=== PATIENT | female | born 1955 | race Caucasian/White ===

== ENCOUNTER 2020-04-30 12:17 | Emergency (ER) | payer OTHER, SELFPAY ==
[2020-04-30 12:50] VITALS: BP 147/79; PULSE 77; RESP 16; TEMP 36.6; O2SAT 96; BMI 40.7
--- NOTE | 2020-04-30 13:41 | US_ITS ---
EXAMINATION: LEFT LOWER EXTREMITY VENOUS DOPPLER ULTRASOUND CLINICAL INFORMATION: Posterior leg pain. Rule out DVT. COMPARISON: Contralateral right lower extremity venous Doppler ultrasound dated 04/17/2017.. TECHNIQUE: Doppler spectral analysis and color flow Doppler imaging was performed of the left lower extremity. Compression and augmentation maneuvers were performed. FINDINGS: The left common femoral vein, greater saphenous vein takeoff, femoral vein, and popliteal vein are normally compressible with normal augmentation responses and phasic changes seen with Doppler imaging. The midcalf peroneal and posterior tibial veins are patent as well. No popliteal cyst is seen. US/US venous duplex LE LT IMPRESSION: No evidence of deep venous thrombosis in the left lower extremity.
--- NOTE | 2020-04-30 13:42 | XR_ITS ---
EXAMINATION: XR KNEE, LEFT CLINICAL INFORMATION: Pain. COMPARISON: None TECHNIQUE: AP, bilateral oblique, and lateral views of the left knee. FINDINGS: Bones and soft tissues are normal. No fracture or joint effusion. Alignment is anatomic. Joint spaces are well maintained. No abnormal soft tissue calcification. XR/XR knee LT 4V IMPRESSION: Normal left knee.
[2020-04-30 15:06] VITALS: BP 110/56; PULSE 67; RESP 16; TEMP 36.5; O2SAT 96
--- NOTE | 2020-04-30 15:17 | ED.EXTPRO ---
HPI - Extremity Problem General Chief complaint: Extremity Injury, Lower Stated complaint: L KNEE PAIN Time Seen by Provider: 04/30/20 13:06 History of Present Illness HPI Narrative: Patient complains of pain in the back of the left leg with no injury, no fever, no shortness of breath The pain is mild and was relieved with Naprosyn and has been going on for 4 days Related Data Allergies Allergy/AdvReac Type Severity Reaction Status Date / Time amoxicillin Allergy Unknown Verified 03/03/20 00:00 No Known Allergies Allergy Unverified 03/17/20 15:02 [No Known Allergies*] Flonase Allergy Unknown Uncoded 03/03/20 00:00 PMFSH Social History Social History Advance Directives: No Advance Directives Information Provided: No Physical Exam Vital Signs: Vital Signs: Vital Signs Temp Pulse Resp BP Pulse Ox 04/30/20 15:06 97.7 F 67 16 110/56 L 96 04/30/20 12:50 97.9 F 77 16 147/79 H 96 Body Mass Index 40.7 Discharge Plan Discharge Clinical Impression: Leg pain, left Patient Disposition: Home, Self-Care Additional Instructions: Your ultrasound did not show any blood clot or cyst so no DVT now If you got increased leg swelling or redness or any worse condition return for re-evaluation You can follow with orthopedist for further evaluation and possible physical therapy if pain continues or primary doctor Return any time any worse condition or any concerns Referrals: Suraj Coates MD [Physician] - 2 days Interventions: ED Discharge Assessment Last Done: 04/30/20 15:23 Discharge Date/Time: 04/30/20 15:24
== END 2020-04-30 15:24 | disposition home or self-care (01) ==
PROVIDERS: Emergency Provider Emergency Medicine; PCP Internal Medicine
DX: M25.562 Pain in left knee (principal)
CPT/HCPCS: 73564; 93971; 99284

== ENCOUNTER 2020-11-08 10:16 | Outpatient (REF) | payer OTHER, SELFPAY ==
[2020-11-08 10:19] LABS: MANUAL DIFF FLAG NO
[2020-11-08 11:03] LABS: Basophils Absolute Auto 0.1 X10*3/uL (0.0-0.2); Basophils Percent Auto 0.6 % (0-2); Eosinophils Absolute Auto 0.3 X10*3/uL (0.0-0.4); Eosinophils Percent Auto 3.1 % (0-4); Hematocrit 52.1 % (37-47); Hemoglobin 16.6 g/dl (12.0-16.0); Imm Gran Abs Auto 0.06 X10*3/uL (0.00-0.03); Imm Gran Pct Auto 0.5 % (0.0-0.4); Lymphocytes Absolute Auto 2.7 X10*3/uL (1.2-4.9); Lymphocytes Percent Auto 24.7 % (20-40); Mean Corpuscular HGB Conc 31.9 g/dl (31.0-35.0); Mean Corpuscular Hemoglobin 28.8 pg (27.0-33.0); Mean Corpuscular Volume 90.5 fL (80-98); Mean Platelet Volume 11.8 fL (9.4-12.3); Monocytes Absolute Auto 0.7 X10*3/uL (0.1-1.2); Neutrophils Absolute Auto 7.2 X10*3/uL (2.0-8.3); Neutrophils Percent Auto 65.1 % (45-73); Platelet Count 277 X10*3/uL (160-400); Red Blood Count 5.76 X10*6/uL (4.20-5.50); White Blood Count 11.1 X10*3/uL (4.8-10.8)
[2020-11-08 11:09] LABS: Glucose Urine UA NEG (NEG); Leukocyte Esterase Urine NEG (NEG); Nitrite Urine NEG (NEG); PH 5.5 (5.0-8.0); Urine Blood TRACE (NEG); Urine Ketones NEG (NEG); Urine Protein NEG (NEG-TRACE)
[2020-11-08 11:12] LABS: Appearance Urine CLEAR; Color Urine YELLOW
[2020-11-08 11:26] LABS: RBC Urine 0-2 /HPF (0); Squamous Epithelial Cell Urine TRACE /LPF; WBC Urine 0-2 /HPF (0-4)
[2020-11-08 12:48] LABS: Alanine Aminotransferase 17 U/L (0-31); Albumin Level 4.2 g/dL (3.5-5.0); Alkaline Phosphatase 75 U/L (39-117); Anion Gap 15 (12-20); Aspartate Amino Transferase 14 U/L (5-31); Bilirubin Total 0.6 mg/dL (0.0-1.0); Blood Urea Nitrogen 13 mg/dL (9-16); Calcium 9.3 mg/dL (8.4-10.2); Carbon Dioxide 27 mmol/L (22-29); Chloride 104 mmol/L (96-108); Cholesterol 161 mg/dL; Estimated Glomerular Filt Rate > 60; Glucose Fasting 91 mg/dL (60-99); HDL Cholesterol 35 mg/dL; LDL Cholesterol Calculated 104 mg/dl; Potassium 4.6 mmol/L (3.3-5.1); Sodium 141 mmol/L (135-145); Total Protein 6.7 g/dL (6.5-8.0); Triglycerides 114 mg/dL
[2020-11-08 13:01] LABS: Reflex LDLD? No
== END 2020-11-08 10:17 | disposition home or self-care (01) ==
LOC: HO.LNP 10:16
PROVIDERS: Visit Provider Internal Medicine
DX: Z00.01 Encounter for general adult medical examination with abnormal findings (principal); E78.00 Pure hypercholesterolemia, unspecified; E55.9 Vitamin D deficiency, unspecified
CPT/HCPCS: 80053; 80061; 81001; 81003; 82306; 85025

== ENCOUNTER 2020-11-23 08:54 | Outpatient (REF) | payer OTHER, SELFPAY ==
--- NOTE | ~2020-11-23 | US_ITS ---
EXAMINATION: US ABDOMEN COMPLETE CLINICAL INFORMATION: Right upper quadrant pain. COMPARISON: CT abdomen and pelvis 10/04/2016. TECHNIQUE: Real-time imaging of the abdominal viscera. FINDINGS: PANCREAS: Normal. ABDOMINAL AORTA: There is evidence of atherosclerotic disease of the distal abdominal aorta. No aneurysm is seen. INFERIOR VENA CAVA: Visualized portions are normal. LIVER: Liver echotexture is increased. The liver is normal in size. The liver contour is normal. No focal hepatic lesion. There is no intrahepatic biliary duct dilatation seen. GALLBLADDER: Normal. The gallbladder is physiologically distended without evidence of stones, sludge, polyps, wall thickening or pericholecystic fluid. COMMON BILE DUCT: Normal in caliber measuring 0.4 cm in diameter. RIGHT KIDNEY: Normal. No hydronephrosis. No renal calculi or focal parenchymal lesions. The kidney measures 12.6 cm in maximum dimension. LEFT KIDNEY: There is a 3.9 x 3.6 x 3.5 cm cyst in the upper pole. There is mild left hydronephrosis. No renal calculi. The kidney measures 12.4 cm in maximum dimension. SPLEEN: Normal. The spleen measures 12.0 cm in maximum dimension. FREE FLUID: None. US/US abdomen complete IMPRESSION: Echogenic liver probably representing fatty infiltration. Left renal cyst. Mild left hydronephrosis. Atherosclerotic disease.
== END 2020-11-23 08:55 | disposition home or self-care (01) ==
LOC: HO.HMGCX 08:54
PROVIDERS: PCP Internal Medicine; Visit Provider Internal Medicine
DX: R10.11 Right upper quadrant pain (principal)
CPT/HCPCS: 76700

== ENCOUNTER 2020-12-05 10:45 | Outpatient (REF) | payer OTHER, SELFPAY ==
[2020-12-05 12:23] LABS: Glucose Urine UA NEG (NEG); Leukocyte Esterase Urine NEG (NEG); Nitrite Urine NEG (NEG); Specific Gravity - Urine <= 1.005 (1.005-1.025); Urine Blood NEG (NEG); Urine Ketones NEG (NEG); Urine Protein NEG (NEG-TRACE)
[2020-12-05 12:25] LABS: Appearance Urine CLEAR; Color Urine YELLOW
== END 2020-12-05 10:46 | disposition home or self-care (01) ==
LOC: HO.LNP 10:45
PROVIDERS: Visit Provider Internal Medicine
DX: N30.00 Acute cystitis without hematuria (principal)
CPT/HCPCS: 81003; 87086

== ENCOUNTER 2021-01-03 17:20 | Outpatient (REF) | payer OTHER, SELFPAY | END 2021-01-03 17:21 | disposition home or self-care (01) | LOC: HO.LNP 17:20 | PROVIDERS: Visit Provider Nurse Practitioner Family | DX: R30.0 Dysuria (principal) | CPT/HCPCS: 87086 ==

== ENCOUNTER 2021-01-05 10:23 | Outpatient (REF) | payer OTHER, SELFPAY ==
--- NOTE | ~2021-01-05 | MM_ITS ---
EXAMINATION: BONE DENSITOMETRY CLINICAL INDICATION: Menopausal. COMPARISON: Previous BD dated 11/18/2018 and baseline BD dated 07/19/2015. TECHNIQUE: Using a [id number] DXA System (software version: 13.1) manufactured by [employer], dual-energy x-ray absorptiometry was performed of the lumbar spine and left hip. The images are of good technical quality. Summary results are attached. FINDINGS: AP SPINE L1-L4: Current: BMD 1.566 g/cm2, Z-score 3.6, T-score 3.2, normal, 0.1% increase from previous, 2.9% increase from baseline (<5% change is not significant). Prior: BMD 1.565 g/cm2. Baseline: BMD 1.522 g/cm2. LEFT FEMUR, NECK: Current: BMD 1.150 g/cm2, Z-score 1.5, T-score 0.8, normal. Prior: BMD 1.185 g/cm2. Baseline: BMD 1.158 g/cm2. LEFT FEMUR, TOTAL: Current: BMD 1.270 g/cm2, Z-score 2.4, T-score 2.1, normal, 3.7% decrease from previous, 2.8% decrease from baseline (<5% change is not significant). Prior: BMD 1.319 g/cm2. Baseline: BMD 1.306 g/cm2. IDENTIFIED RISK FACTORS: Menopause. HISTORY OF FRACTURE: None listed. MEDICATIONS: None listed. MM/XR DEXA axial skeleton IMPRESSION: 1. DIAGNOSIS: Normal bone density based on the lowest T-score value of 0.8 in the femoral neck applying World Health Organization criteria. 2. 10-YEAR FRACTURE RISK PREDICTION, FRAX: Major osteoporotic fracture (clinical spine, forearm, hip or shoulder) 5.1%. Hip fracture 0.1%. 3. Treatment Recommendations: NOF guidelines recommend consideration for treatment in postmenopausal women and men age 50 and older presenting with the following: -A hip or vertebral (clinical or morphometric) fracture. -T-score less than or equal to -2.5 at the femoral neck or spine after appropriate evaluation to exclude secondary causes. -Low bone mass at the hip or spine and a 10-year fracture probability by FRAX of greater than or equal to 3% for hip fracture or greater than or equal to 20% for major osteoporotic fracture based on the [place] adapted WHO algorithm. 4. Other Recommendations: All treatment decisions require clinical judgment and consideration of individual patient factors, including patient preferences, comorbidities, previous drug use, risk factors not captured in the FRAX model (e.g. frailty, falls, vitamin D deficiency, increased bone turnover, interval significant decline in bone density) and possible under or overestimation of fracture risk by FRAX. FUTURE SCAN RECOMMENDATION: People with diagnosed cases of osteoporosis or at high risk for fracture should have regular bone mineral density tests. For patients eligible for Medicare, routine testing is allowed once every 2 years. The testing frequency can be increased to one year for patients who have rapidly progressing disease, those who are receiving or discontinuing medical therapy to restore bone mass, or have additional risk factors.
== END 2021-01-05 10:24 | disposition home or self-care (01) ==
LOC: HO.MAMMO 10:23
PROVIDERS: Visit Provider Internal Medicine
DX: Z13.820 Encounter for screening for osteoporosis (principal); Z78.0 Asymptomatic menopausal state
CPT/HCPCS: 77080

== ENCOUNTER 2021-05-19 10:17 | Outpatient (REF) | payer MEDICARE, SELFPAY ==
[2021-05-19 11:46] LABS: Alanine Aminotransferase 19 U/L (0-31); Alkaline Phosphatase 93 U/L (39-117); Aspartate Amino Transferase 16 U/L (5-31); Bilirubin Direct 0.2 mg/dL (0.0-0.5); Bilirubin Total 0.5 mg/dL (0.0-1.0); Cholesterol 146 mg/dL; HDL Cholesterol 31 mg/dL; LDL Cholesterol Calculated 93 mg/dl; Total Protein 6.6 g/dL (6.5-8.0); Triglycerides 113 mg/dL
[2021-05-19 12:40] LABS: Reflex LDLD? No
== END 2021-05-19 10:18 | disposition home or self-care (01) ==
LOC: HO.LNP 10:17
PROVIDERS: Visit Provider Internal Medicine
DX: E78.00 Pure hypercholesterolemia, unspecified (principal)
CPT/HCPCS: 80061; 80076

== ENCOUNTER 2021-11-09 10:35 | Outpatient (REF) | payer MEDICARE, SELFPAY ==
[2021-11-09 10:39] LABS: MANUAL DIFF FLAG NO
[2021-11-09 10:51] LABS: Basophils Absolute Auto 0.1 X10*3/uL (0.0-0.2); Basophils Percent Auto 0.6 % (0-2); Eosinophils Absolute Auto 0.3 X10*3/uL (0.0-0.4); Eosinophils Percent Auto 2.3 % (0-4); Hematocrit 49.4 % (37.0-47.0); Hemoglobin 15.5 g/dl (12.0-16.0); Imm Gran Abs Auto 0.08 X10*3/uL (0.00-0.03); Imm Gran Pct Auto 0.6 % (0.0-0.4); Lymphocytes Absolute Auto 2.4 X10*3/uL (1.2-4.9); Lymphocytes Percent Auto 18.9 % (20-40); Mean Corpuscular HGB Conc 31.4 g/dl (31.0-35.0); Mean Corpuscular Hemoglobin 28.1 pg (27.0-33.0); Mean Corpuscular Volume 89.7 fL (80.0-98.0); Mean Platelet Volume 11.8 fL (9.4-12.3); Monocytes Absolute Auto 0.8 X10*3/uL (0.1-1.2); Neutrophils Percent Auto 71.6 % (45-73); Platelet Count 288 X10*3/uL (160-400); Red Blood Count 5.51 X10*6/uL (4.20-5.50); Red Cell Distribution Width 14.5 % (11.0-16.0); White Blood Count 12.6 X10*3/uL (4.8-10.8)
[2021-11-09 11:02] LABS: Alanine Aminotransferase 17 U/L (0-31); Alkaline Phosphatase 89 U/L (39-117); Anion Gap 13 (12-20); Aspartate Amino Transferase 15 U/L (5-31); Bilirubin Total 0.5 mg/dL (0.0-1.0); Blood Urea Nitrogen 12 mg/dL (9-16); Carbon Dioxide 23 mmol/L (22-29); Chloride 105 mmol/L (96-108); Cholesterol 151 mg/dL; Estimated Glomerular Filt Rate > 60; Glucose Fasting 103 mg/dL (60-99); HDL Cholesterol 31 mg/dL; LDL Cholesterol Calculated 95 mg/dl; Potassium 4.3 mmol/L (3.3-5.1); Sodium 137 mmol/L (135-145); Total Protein 6.6 g/dL (6.5-8.0); Triglycerides 126 mg/dL
[2021-11-09 11:23] LABS: Vitamin D 25-OH Total 8.8 ng/mL (>30)
[2021-11-09 11:34] LABS: Appearance Urine CLEAR; Color Urine YELLOW; Glucose Urine UA NEG (NEG); Leukocyte Esterase Urine NEG (NEG); Nitrite Urine NEG (NEG); Specific Gravity - Urine <= 1.005 (1.005-1.025); Urine Blood 1+ (NEG); Urine Ketones NEG (NEG); Urine Protein NEG (NEG-TRACE)
[2021-11-09 13:53] LABS: Squamous Epithelial Cell Urine 2+ /LPF
[2021-11-09 13:54] LABS: WBC Urine 0 /HPF (0-4)
== END 2021-11-09 10:36 | disposition home or self-care (01) ==
LOC: HO.LNP 10:35
PROVIDERS: Visit Provider Internal Medicine
DX: I10 Essential (primary) hypertension (principal); E78.5 Hyperlipidemia, unspecified; E78.00 Pure hypercholesterolemia, unspecified; E55.9 Vitamin D deficiency, unspecified; K75.81 Nonalcoholic steatohepatitis (NASH)
CPT/HCPCS: 80053; 80061; 81001; 81003; 82306; 85025

== ENCOUNTER 2021-12-01 16:05 | Outpatient (REF) | payer MEDICARE, SELFPAY | END 2021-12-01 16:06 | disposition home or self-care (01) | LOC: HO.LNP 16:05 | PROVIDERS: Visit Provider Internal Medicine | DX: R30.0 Dysuria (principal) | CPT/HCPCS: 87086 ==

== ENCOUNTER 2022-05-10 15:51 | Outpatient (REF) | payer MEDICARE, SELFPAY ==
[2022-05-10 16:06] LABS: Appearance Urine Clear; Color Urine Yellow; Glucose Urine UA Negative (Negative); Leukocyte Esterase Urine Trace (Negative); Nitrite Urine Negative (Negative); UMIC TRIGGER UA YES; Urine Blood Negative (Negative); Urine Ketones Negative (Negative); Urine Protein Negative (Neg-Trace)
[2022-05-10 16:08] LABS: Bacteria Urine None Seen (None Seen); Hyaline Casts Urine 0-2 /LPF (0-2); RBC Urine 0-2 /HPF (0-2); Squamous Epithelial Cell Urine 0-2 /HPF (0-2); WBC Urine 0-5 /HPF (0-5)
== END 2022-05-10 15:52 | disposition home or self-care (01) ==
LOC: HO.LNP 15:51
PROVIDERS: Visit Provider Internal Medicine
DX: N39.0 Urinary tract infection, site not specified (principal)
CPT/HCPCS: 81001; 87086

== ENCOUNTER 2022-05-30 08:46 | Outpatient (REF) | payer MEDICARE, SELFPAY ==
--- NOTE | ~2022-05-30 | CT_ITS ---
EXAMINATION: CT ABDOMEN AND PELVIS WITHOUT CONTRAST CLINICAL INFORMATION: Kidney stones. COMPARISON: None TECHNIQUE: Multidetector volumetric imaging was performed from the superior aspect of the liver through the pubic symphysis. Sagittal and coronal reformatted images were obtained on the technologist's workstation. This CT examination was performed using dose optimization techniques as appropriate, variously including the following: *Automated exposure control *Adjustment of mA and/or kV according to patient size (this includes techniques or standardized protocols for targeted exams where dose is matched to indication/reason for exam; i.e. extremities or head) *Use of iterative reconstruction technique DLP: 1032 mGy-cm FINDINGS: LUNG BASES: The visualized lung bases are unremarkable. LIVER, GALLBLADDER, AND BILIARY TREE: The liver is normal in size, shape, and attenuation. No focal hepatic lesion or biliary ductal dilatation is present. The gallbladder is unremarkable with no evidence of radiopaque gallstones, gallbladder wall thickening, or obvious pericholecystic inflammatory changes. PANCREAS: Unremarkable. SPLEEN: Unremarkable. ADRENAL GLANDS: Unremarkable. KIDNEYS AND URETERS: The kidneys are normal in size, shape, and attenuation. No hydronephrosis, hydroureter, or calculi seen. There are vascular calcifications in the renal hilum bilaterally. No perinephric stranding. There is a 3.8 x 3.9 x 4.4 cm partially exophytic cyst upper pole left kidney. BLADDER: The bladder is empty without bladder wall thickening. GASTROINTESTINAL TRACT: There is diffuse scattered colonic diverticulosis without diverticulitis. There is scattered stool without distention. No mural thickening or pericolic fat stranding. Visualized appendix and the small-bowel loops are normal caliber. The stomach is nondistended. No inflammatory process seen in the abdomen. ABDOMINAL WALL: No significant hernia is appreciated. LYMPH NODES: Normal. VASCULAR: There is atherosclerotic calcification of abdominal aorta without aneurysmal dilatation. PELVIC VISCERA: There is a calcification along the posterior upper uterus likely fibroid. The uterus is anteverted. No adnexal mass or free fluid seen. There are no abnormal pelvic lymph nodes. OSSEOUS STRUCTURES: No aggressive lytic or sclerotic process seen. CT/CT abdomen pelvis wo IV con IMPRESSION: 1. No radiopaque urolith or hydroureteronephrosis. There are vascular calcifications in the renal hilum bilaterally. There is a partially exophytic cyst upper pole left kidney. 2. Diffuse colonic diverticulosis without diverticulitis. Mild constipation. Fleischner guidelines were followed.
== END 2022-05-30 08:47 | disposition home or self-care (01) ==
LOC: HO.CT 08:46
PROVIDERS: Visit Provider Internal Medicine
DX: N20.0 Calculus of kidney (principal)
CPT/HCPCS: 74176

== ENCOUNTER 2022-06-01 10:34 | Outpatient (REF) | payer MEDICARE, SELFPAY ==
[2022-06-01 14:01] LABS: Alanine Aminotransferase 19 U/L (0-31); Albumin Level 4.1 g/dL (3.5-5.0); Alkaline Phosphatase 87 U/L (39-117); Aspartate Amino Transferase 15 U/L (5-31); Bilirubin Direct 0.2 mg/dL (0.0-0.5); Bilirubin Total 0.5 mg/dL (0.0-1.0); Cholesterol 150 mg/dL; HDL Cholesterol 33 mg/dL; LDL Cholesterol Calculated 93 mg/dl; Total Protein 6.7 g/dL (6.5-8.0); Triglycerides 121 mg/dL
[2022-06-01 15:53] LABS: Reflex LDLD? No
== END 2022-06-01 10:35 | disposition home or self-care (01) ==
LOC: HO.LNP 10:34
PROVIDERS: Visit Provider Internal Medicine
DX: E78.00 Pure hypercholesterolemia, unspecified (principal)
CPT/HCPCS: 80061; 80076

== ENCOUNTER 2022-12-06 11:05 | Outpatient (REF) | payer MEDICARE, SELFPAY ==
[2022-12-06 11:10] LABS: MANUAL DIFF FLAG NO
[2022-12-06 11:30] LABS: Basophils Absolute Auto 0.1 X10*3/uL (0.0-0.2); Basophils Percent Auto 0.6 % (0-2); Eosinophils Absolute Auto 0.3 X10*3/uL (0.0-0.4); Eosinophils Percent Auto 2.2 % (0-4); Hematocrit 50.9 % (37.0-47.0); Hemoglobin 16.3 g/dl (12.0-16.0); Imm Gran Abs Auto 0.09 X10*3/uL (0.00-0.03); Imm Gran Pct Auto 0.8 % (0.0-0.4); Lymphocytes Absolute Auto 2.4 X10*3/uL (1.2-4.9); Lymphocytes Percent Auto 20.6 % (20-40); Mean Corpuscular Hemoglobin 29.1 pg (27.0-33.0); Mean Corpuscular Volume 90.7 fL (80.0-98.0); Mean Platelet Volume 11.8 fL (9.4-12.3); Monocytes Absolute Auto 0.8 X10*3/uL (0.1-1.2); Monocytes Percent Auto 6.4 % (2-11); Neutrophils Absolute Auto 8.1 x10*3/uL (2.0-8.3); Neutrophils Percent Auto 69.4 % (45-73); Platelet Count 281 X10*3/uL (160-400); Red Blood Count 5.61 X10*6/uL (4.20-5.50); Red Cell Distribution Width 14.6 % (11.0-16.0); White Blood Count 11.7 X10*3/uL (4.8-10.8)
[2022-12-06 11:38] LABS: Appearance Urine Clear; Color Urine Yellow; Glucose Urine UA Negative (Negative); Leukocyte Esterase Urine Trace (Negative); Nitrite Urine Negative (Negative); UMIC TRIGGER UACC YES; Urine Blood Negative (Negative); Urine Ketones Negative (Negative); Urine Protein Negative (Neg-Trace)
[2022-12-06 11:45] LABS: Bacteria Urine None Seen (None Seen); Hyaline Casts Urine 0-2 /LPF (0-2); RBC Urine 0-2 /HPF (0-2); Squamous Epithelial Cell Urine 0-2 /HPF (0-2); WBC Urine 0-5 /HPF (0-5)
[2022-12-06 11:52] LABS: Alanine Aminotransferase 22 U/L (0-31); Alkaline Phosphatase 90 U/L (39-117); Anion Gap 12 (12-20); Aspartate Amino Transferase 16 U/L (5-31); Bilirubin Total 0.6 mg/dL (0.0-1.0); Blood Urea Nitrogen 14 mg/dL (9-16); Calcium 9.3 mg/dL (8.4-10.2); Carbon Dioxide 27 mmol/L (22-29); Chloride 106 mmol/L (96-108); Cholesterol 154 mg/dL; Estimated Glomerular Filt Rate > 60; Glucose Fasting 94 mg/dL (60-99); HDL Cholesterol 30 mg/dL; LDL Cholesterol Calculated 99 mg/dl; Potassium 4.5 mmol/L (3.3-5.1); Sodium 140 mmol/L (135-145); Total Protein 6.6 g/dL (6.5-8.0); Triglycerides 125 mg/dL
== END 2022-12-06 11:06 | disposition home or self-care (01) ==
LOC: HO.LNP 11:05
PROVIDERS: Visit Provider Internal Medicine
DX: E78.00 Pure hypercholesterolemia, unspecified (principal); I10 Essential (primary) hypertension; E78.6 Lipoprotein deficiency; E55.9 Vitamin D deficiency, unspecified
CPT/HCPCS: 80053; 80061; 81001; 82306; 85025

== ENCOUNTER 2023-04-22 11:22 | Outpatient (AMB) | payer MEDICARE, SELFPAY ==
--- NOTE | 2023-04-22 11:28 | A.OFFVIS_ITS ---
Intake Vital Signs 04/22/23 11:35 Height 5 ft 3 in Weight 256 lb BMI 45.3 BP 126/58 L Blood Pressure Location Lt brachial Position Sitting Pulse 81 Intake Visit Reasons: lipoma of the neck Intake Note: This patient presents for an assessment for lipoma of the neck. Patient c/o; reports has minimized. Crystal Report Developer Required: No Accompanied by: Self / Same As Patient Allergies amoxicillin Allergy (Unknown, Verified 04/22/23 11:28) Rash sulfamethoxazole [From Bactrim] Allergy (Verified 04/22/23 11:28) Rash trimethoprim [From Bactrim] Allergy (Verified 04/22/23 11:28) Rash Medication List - Last Reconciled 04/22/23 by Ashish Loyola MD atenolol 50 mg PO DAILY atorvastatin 40 mg PO DAILY cholecalciferol (vitamin D3) 25 mcg PO DAILY ciprofloxacin HCl 250 mg PO BID 5 days HPI lipoma of the neck HPI Details 68-year-old female referred for a lump o n the neck. She says she noticed this a few weeks ago. He seems to be more swollen but 1 day, she says that this drained completely. She denies any problems since that time. She says that this does not bother her at all. She denies any persistent drainage. She denies any redness. [facility] Medical History Epidermal cyst of neck Surgical History History of mastectomy History of lumpectomy Family History Paternal Grandfather Cancer Social History Alcohol intake: never Patient Tobacco Use Status: Never used Tobacco Review of Systems Const Denies chills and Denies fever(s) Card Denies chest pain, Denies dyspnea and Denies dyspnea on exertion Resp Denies cough, Denies dyspnea and Denies dyspnea on exertion GI Denies hematochezia and Denies change in bowel habits Denies hematuria Musc Denies back pain and Denies limited range of motion Neuro Denies focal weakness and Denies convulsions Psych Denies depression and Denies mood swings Physical Exam Vital Signs: Last Vital Signs Pulse 81 04/22/23 11:35 BP 126/58 L 04/22/23 11:35 BMI result Body Mass Index 45.3 Const General: comfortable and no acute distress Orientation/consciousness: patient oriented x3 Neck Other: Anterior neck with note of a small induration probably about 5 mm in size, not swollen, no discharge, no redness Neck: Yes no lymphadenopathy Resp Auscultation: clear to auscultation bilaterally Cardio Rhythm: regular rhythm GI Palpation (GI): Soft to palpation, nontender and no guarding Neuro General: patient oriented x3 Assessment & Plan Assessment & Plan (1) Epidermal cyst of neck: Code(s): L72.0 - Epidermal cyst Plan: She has what appears to be an epidermal cyst that had ruptured. I explained to her the technique of excision. I reviewed with her the risks including but not limited to bleeding, infections, poor healing, as well as the benefits and alternatives. She says that this has not bothered her she wants to hold off on excision. She says the swelling has resolved. Coding Level of Care Code New Pt Level 3 (04980) Diagnoses Epidermal cyst of neck L72.0
[2023-04-22 11:35] VITALS: BP 126/58; PULSE 81; BMI 45.3
== END 2023-04-22 11:48 | disposition home or self-care (01) ==
PROVIDERS: PCP Internal Medicine; Visit Provider Surgery
DX: L72.0 Epidermal cyst (principal)
CPT/HCPCS: 99203

== ENCOUNTER → 2023-04-22 11:22 | Outpatient (BNVA) | payer MEDICARE, SELFPAY | PROVIDERS: PCP Internal Medicine; Visit Provider Surgery ==

== ENCOUNTER 2023-06-07 10:40 | Outpatient (REF) | payer MEDICARE, SELFPAY ==
[2023-06-07 11:12] LABS: Cholesterol 149 mg/dL (<200); HDL Cholesterol 32 mg/dL (>40); LDL Cholesterol Calculated 95 mg/dL (<100); Triglycerides 114 mg/dL (<150)
[2023-06-07 11:14] LABS: Alanine Aminotransferase 19 U/L (0-31); Alkaline Phosphatase 86 U/L (39-117); Aspartate Amino Transferase 16 U/L (5-31); Bilirubin Direct 0.2 mg/dL (0.0-0.5); Bilirubin Total 0.4 mg/dL (0.0-1.0); Total Protein 7.2 g/dL (6.5-8.0)
[2023-06-07 14:48] LABS: Reflex LDLD? No
== END 2023-06-07 10:41 | disposition home or self-care (01) ==
LOC: HO.LNP 10:40
PROVIDERS: Visit Provider Internal Medicine
DX: E78.00 Pure hypercholesterolemia, unspecified (principal)
CPT/HCPCS: 80061; 80076

== ENCOUNTER 2023-11-18 09:50 | Outpatient (REF) | payer MEDICARE, SELFPAY ==
--- NOTE | ~2023-11-18 | US_ITS ---
EXAMINATION: US ABDOMEN COMPLETE CLINICAL INFORMATION: Nonalcoholic steatohepatitis (FRASER). COMPARISON: CT abdomen and pelvis without contrast 05/30/2022. Ultrasound abdomen complete 11/23/2020. TECHNIQUE: Real-time imaging of the abdominal viscera. Limited visualization due to bowel gas. FINDINGS: PANCREAS: Limited visualization of pancreatic tail and head. Imaged portion of pancreatic body is unremarkable. ABDOMINAL AORTA: Limited visualization of the [id number] abdominal aorta. Imaged portions of [id number] abdominal aorta are unremarkable. INFERIOR VENA CAVA: Visualized portions are normal. LIVER: Increased hepatic parenchymal heterogeneity and echogenicity could be associated with hepatocellular disease/hepatic steatosis and substantially limits visualization. Correlation with liver function tests and clinical exam recommended to determine further management. The liver contour is normal. GALLBLADDER: No gallstones or gallbladder wall thickening. COMMON BILE DUCT: Normal in caliber measuring 0.5 cm in diameter. RIGHT KIDNEY: Mild fullness of the right renal pelvis. A 1.7 cm right lower pole cyst with benign features. There is no indication for follow-up imaging. No renal calculi. Limited visualization. The kidney measures 12.0 cm in maximum dimension. LEFT KIDNEY: No hydronephrosis. No renal calculi. 4.8 cm upper and 1.2 cm lower pole cysts with benign features. There is no indication for follow-up imaging. The kidney measures 11.0 cm in maximum dimension. SPLEEN: Borderline splenomegaly. The spleen measures 12.5 cm in maximum dimension. FREE FLUID: None. US/US abdomen complete IMPRESSION: 1. Increased hepatic parenchymal heterogeneity and echogenicity could be associated with hepatocellular disease/hepatic steatosis and substantially limits visualization. Correlation with liver function tests and clinical exam recommended to determine further management. The liver contour is normal. 2. Mild fullness of the right renal pelvis. 3. Borderline splenomegaly
== END 2023-11-18 09:51 | disposition home or self-care (01) ==
LOC: HO.US 09:50
PROVIDERS: PCP Internal Medicine; Visit Provider Internal Medicine
DX: K75.81 Nonalcoholic steatohepatitis (NASH) (principal)
CPT/HCPCS: 76700

== ENCOUNTER 2023-12-09 11:05 | Outpatient (REF) | payer MEDICARE, SELFPAY ==
[2023-12-09 11:08] LABS: MANUAL DIFF FLAG NO
[2023-12-09 12:15] LABS: Basophils Absolute Auto 0.1 X10*3/uL (0.0-0.2); Basophils Percent Auto 0.6 % (0-2); Eosinophils Absolute Auto 0.3 X10*3/uL (0.0-0.4); Eosinophils Percent Auto 2.1 % (0-4); Hematocrit 52.6 % (37.0-47.0); Hemoglobin 16.6 g/dl (12.0-16.0); Imm Gran Abs Auto 0.07 X10*3/uL (0.00-0.03); Imm Gran Pct Auto 0.6 % (0.0-0.4); Lymphocytes Absolute Auto 2.4 X10*3/uL (1.2-4.9); Lymphocytes Percent Auto 19.6 % (20-40); Mean Corpuscular HGB Conc 31.6 g/dl (31.0-35.0); Mean Corpuscular Hemoglobin 28.4 pg (27.0-33.0); Mean Corpuscular Volume 89.9 fL (80.0-98.0); Mean Platelet Volume 11.4 fL (9.4-12.3); Monocytes Absolute Auto 0.8 X10*3/uL (0.1-1.2); Monocytes Percent Auto 6.7 % (2-11); Neutrophils Absolute Auto 8.7 x10*3/uL (2.0-8.3); Neutrophils Percent Auto 70.4 % (45-73); Platelet Count 301 X10*3/uL (160-400); Red Blood Count 5.85 X10*6/uL (4.20-5.50); Red Cell Distribution Width 14.6 % (11.0-16.0); White Blood Count 12.3 X10*3/uL (4.8-10.8)
[2023-12-09 12:18] LABS: Appearance Urine Clear; Color Urine Yellow; Glucose Urine UA Negative (Negative); Leukocyte Esterase Urine Negative (Negative); Nitrite Urine Negative (Negative); Urine Blood Negative (Negative); Urine Ketones Negative (Negative); Urine Protein Negative (Neg-Trace)
[2023-12-09 12:23] LABS: Bacteria Urine None Seen (None Seen); Hyaline Casts Urine 0-2 /LPF (0-2); RBC Urine 0-2 /HPF (0-2); Squamous Epithelial Cell Urine 0-2 /HPF (0-2); WBC Urine 0-5 /HPF (0-5)
[2023-12-09 12:33] LABS: Alanine Aminotransferase 21 U/L (0-31); Alkaline Phosphatase 89 U/L (39-117); Anion Gap 10 (12-20); Aspartate Amino Transferase 18 U/L (5-31); Bilirubin Total 0.5 mg/dL (0.0-1.0); Blood Urea Nitrogen 11 mg/dL (9-16); Calcium 9.5 mg/dL (8.4-10.2); Carbon Dioxide 28 mmol/L (22-29); Chloride 105 mmol/L (96-108); Cholesterol 152 mg/dL (<200); Estimated Glomerular Filt Rate > 60; Glucose Fasting 100 mg/dL (60-99); HDL Cholesterol 32 mg/dL (>40); LDL Cholesterol Calculated 92 mg/dL (<100); Potassium 4.3 mmol/L (3.3-5.1); Sodium 139 mmol/L (135-145); Total Protein 7.2 g/dL (6.5-8.0); Triglycerides 144 mg/dL (<150)
[2023-12-09 12:47] LABS: Vitamin D 25-OH Total 42.3 ng/mL (>30)
== END 2023-12-09 11:06 | disposition home or self-care (01) ==
LOC: HO.LNP 11:05
PROVIDERS: Visit Provider Internal Medicine
DX: I10 Essential (primary) hypertension (principal); E78.00 Pure hypercholesterolemia, unspecified; E55.9 Vitamin D deficiency, unspecified
CPT/HCPCS: 80053; 80061; 81001; 82306; 85025

== ENCOUNTER 2024-01-24 09:51 | Outpatient (REF) | payer MEDICARE, SELFPAY ==
--- NOTE | ~2024-01-24 | US_ITS ---
EXAMINATION: US ABDOMEN LIMITED WITH LIVER ELASTOGRAPHY CLINICAL INFORMATION: Nonalcoholic steatohepatitis. COMPARISON: Abdominal ultrasound dated 11/18/2023; CT abdomen and pelvis dated 05/30/2022. TECHNIQUE: Real-time imaging of the abdominal viscera. Noninvasive ultrasound liver fibrosis assessment is performed using Jean [employer] point quantification shear wave elastography (pSWE) with a 5 MHz transducer. Multiple elastography samples are obtained. FINDINGS: PANCREAS: There is increased echotexture, consistent with fatty infiltration. No pancreatic mass or ductal dilatation is seen. There is no peripancreatic acute fluid collection. LIVER: The liver demonstrates normal size, contour and increased echogenicity, with pericholecystic sparing. No focal lesion or intrahepatic biliary duct dilatation. The right lobe measures 15.8 cm in length. The left lobe measures 11.7 cm in length. There is hepatopedal portal venous flow. Shear wave elastography provides a median stiffness of 1.67 m/s (reference: normal median stiffness is 0.81 - 1.22 m/s). The IQR/median stiffness to assess sampling precision is 0.13 (reference: optimal IQR/median stiffness is under 0.3). GALLBLADDER: Normal. The gallbladder is physiologically distended without evidence of stones, sludge, polyps, wall thickening or pericholecystic fluid. COMMON BILE DUCT: Normal in caliber measuring 0.3 cm in diameter. RIGHT KIDNEY: Normal. No hydronephrosis. No renal calculi or focal parenchymal lesions. The kidney measures 12.5 cm in maximum dimension. FREE FLUID: None. US/US abdomen olvera w elastography IMPRESSION: 1. There is generalized increase in hepatic echotexture, consistent with fatty infiltration or hepatocellular disease. Please correlate clinically. Characteristic pericholecystic sparing favors the provided diagnosis of nonalcoholic steatohepatitis. No focal hepatic mass or intrahepatic biliary dilatation is seen. 2. Elastography: Liver elastography measurements are consistent with a minimal risk for clinically significant liver fibrosis (METAVIR Stage F0-F1). Electronically signed by: Dickson Chauhan MD 02/23/2024 04:09 PM EDT
== END 2024-01-24 09:52 | disposition home or self-care (01) ==
LOC: HO.US 09:51
PROVIDERS: Visit Provider Internal Medicine
DX: K75.81 Nonalcoholic steatohepatitis (NASH) (principal)
CPT/HCPCS: 76705; 76981

== ENCOUNTER 2024-02-06 10:58 | Outpatient (REF) | payer MEDICARE, SELFPAY ==
[2024-02-06 11:31] LABS: Blood Urea Nitrogen 14 mg/dL (9-16); Estimated Glomerular Filt Rate > 60
== END 2024-02-06 10:59 | disposition home or self-care (01) ==
LOC: HO.LNP 10:58
PROVIDERS: Visit Provider Internal Medicine
DX: I10 Essential (primary) hypertension (principal)
CPT/HCPCS: 82565; 84520

== ENCOUNTER 2024-02-18 09:19 | Outpatient (REF) | payer MEDICARE, SELFPAY ==
--- NOTE | ~2024-02-18 | CT_ITS ---
EXAMINATION: CT LUMBAR SPINE WITHOUT CONTRAST CLINICAL INFORMATION: Spinal stenosis COMPARISON: None TECHNIQUE: A multidetector CT acquisition of the lumbar spine is obtained without contrast. This CT examination was performed using dose optimization techniques as appropriate, variously including the following: *Automated exposure control *Adjustment of mA and/or kV according to patient size (this includes techniques or standardized protocols for targeted exams where dose is matched to indication/reason for exam; i.e. extremities or head) *Use of iterative reconstruction technique DLP: 1284 mGycm FINDINGS: Mild lumbar levocurvature. Normal lumbar lordosis is preserved. Trace anterolisthesis at L2-L3. Vertebral body heights are maintained. There is no suspicious osseous lesion. Mild disc height loss at L2-L3. Please note canal patency is not well assessed on this examination due to inherent limitations of CT without intrathecal contrast. Within these limitations, multilevel degenerative changes with level by level detail are as follows: L1-L2: No spinal canal or neural foraminal stenosis. L2-L3: Annular disc bulge and moderate bilateral facet arthrosis with partially calcified ligamentum flavum thickening. Apparent mild spinal canal and mild bilateral neural foraminal stenosis. L3-L4: Annular disc bulge with mild bilateral facet arthrosis and ligamentum flavum thickening. No significant spinal canal stenosis. Mild bilateral neural foraminal stenosis. L4-L5: Annular disc bulge/disc osteophyte complex with superiorly migrated left subarticular/foraminal disc extrusion and moderate bilateral facet arthrosis with ligamentum flavum thickening. Apparent moderate spinal canal and subarticular zone narrowing with possible mass effect on the traversing L5 nerve roots. Severe left neural foraminal stenosis with mass effect along the exiting left L4 nerve root. Mild to moderate right neural foraminal stenosis. L5-S1: Annular disc bulge and moderate facet arthrosis. No spinal canal stenosis. Mild neural foraminal narrowing. No significant abnormalities of the paraspinal musculature. The abdominal aorta is of normal contour and caliber. Degenerative changes of the bilateral sacroiliac joints with osseous spurring, more pronounced on the right, subchondral sclerosis, and vacuum phenomenon. Mild patchy calcific atherosclerosis. Bilateral renal cysts not requiring further imaging follow-up. CT/CT lumbar spine wo IV con IMPRESSION: At L4-L5, there is apparent moderate spinal canal and subarticular zone narrowing with possible mass effect on the traversing L5 nerve roots. a superiorly migrated left subarticular/foraminal disc extrusion contributes to severe left neural foraminal stenosis with mass effect along the exiting left L4 nerve root. Electronically signed by: Gabbi Cole MD 03/11/2024 11:29 AM EDT
== END 2024-02-18 09:20 | disposition home or self-care (01) ==
LOC: HO.CT 09:19
PROVIDERS: PCP Internal Medicine; Visit Provider Internal Medicine
DX: M48.07 Spinal stenosis, lumbosacral region (principal)
CPT/HCPCS: 72131

== ENCOUNTER 2024-06-12 11:03 | Outpatient (REF) | payer MEDICARE, SELFPAY ==
--- OUTSIDE RECORDS SUMMARY | 2024-06-12 11:05 | XMS_ITS ---
Author Organization Otoniel Lopez MD Address [address] [place] [phone] Care Team Providers Care Straight Pin Making Machine Operator Name Role Phone Otoniel Lopez Primary Care Provider REASON FOR VISIT RF MEDICATIONS Medication SIG (Take, Route, Frequency, Duration) Notes Start Date End Date Status Atenolol 50 MG TAKE 1 TABLET ONCE D AILY Orally Once a day for 90 days Active Atorvastatin Calcium 40 MG TAKE 1 TABLET ONCE DAILY Orally Once a day for 90 days Active Encounters Encounter Location Date Provider Diagnosis Otoniel Lopez MD [address] [place] [phone] 03/03/2024 Otoniel Lopez Essential hypertensi on I10 and Pure hypercholesterolemia E78.00 ASSESSMENTS Encounter Date Diagnosis Assessment Notes Treatment Notes Treatment Clinical Notes 03/03/2024 Essential hypertensi on (ICD-10 - I10) 03/03/2024 Pure hypercholestero lemia (ICD-10 - E78.00) PLAN OF TREATMENT Medication Medication Name Sig Start Date Stop Date Notes Atenolol 50 MG TAKE 1 TABLET ONCE D AILY Orally Once a day for 90 days Atorvastatin Calcium 40 MG TAKE 1 TABLET ONCE DAILY Orally Once a day for 90 days Next Appt Details Provider Name:Otoniel villalobos, 06/15/2024 09:00:00 AM, [address] [place] [address], [place] [address], [place], [phone], Provider Name:Otoniel villalobos, 12/08/2024 08:00:00 AM, [address] [place] [address], [address], [place], [phone], Provider Name:Otoniel villalobos, 12/15/2024 02:30:00 PM, [address] [place] [address], [address], [place], [phone],
--- OUTSIDE RECORDS SUMMARY | 2024-06-12 11:05 | XMS_ITS | Patient Health Record ---
Author Organization Otoniel Lopez MD Address [address] [place], [place] [id number] Care Team Providers Care Technical Specialist [employer]ogen[employer] Name Role Phone Otoniel Lopez Primary Care Provider ALLERGIES Allergen (clinical drug ingredient) Drug/Non Drug Allergy documented on EMR Reaction Allergy Type Onset Date Status sulfamethoxazole / trimethoprim Bactrim DS rash Drug Allergy Active amoxicillin Amoxicillin rash Drug Allergy Act mart RESULTS Component Value Reference Range Notes US abdomen complete Reviewed date:12/05/2023 12:50:14 PM Interpretation: Performing Lab: Notes/Report: [address] [address] Ultrasound Report Signed Patient: Gaby Villalobos MR#: [id number] : 1955 Acct:[id number] Age/Sex: 68 / F ADM Date: 11/18/23 Loc: HO.US Attending Dr: Otoniel Lopez MD Ordering Physician: Otoniel Lopez MD Date of Service: 11/18/23 Procedure(s): US abdomen complete Accession Number(s): [id number] cc: Otoniel Lopez MD EXAMINATION: US ABDOMEN COMPLETE CLINICAL INFORMATION: Nonalcoholic steatohepatitis (FRASER). COMPARISON: CT abdomen and pelvis without contrast 05/30/2022. Ultrasound abdomen complete 11/23/2020. TECHNIQUE: Real-time imaging of the abdominal viscera. Limited visualization due to bowel gas. FINDINGS: PANCREAS: Limited visualization of pancreatic tail and head. Imaged portion of pancreatic body is unremarkable. ABDOMINAL AORTA: Limited visualization of the fng-re-grvqtt abdominal aorta. Imaged portions of khiayneo-ra-uxt abdominal aorta are unremarkable. INFERIOR VENA CAVA: Visualized portions are normal. LIVER: Increased hepatic parenchymal heterogeneity and echogenicity could be associated with hepatocellular disease/hepatic steatosis and substantially limits visualization. Correlation with liver function tests and clinical exam recommended to determine further management. The liver contour is normal. GALLBLADDER: No gallstones or gallbladder wall thickening. COMMON BILE DUCT: Normal in caliber measuring 0.5 cm in diameter. RIGHT KIDNEY: Mild fullness of the right renal pelvis. A 1.7 cm right lower pole cyst with benign features. There is no indication for follow-up imaging. No renal calculi. Limited visualization. The kidney measures 12.0 cm in maximum dimension. LEFT KIDNEY: No hydronephrosis. No renal calculi. 4.8 cm upper and 1.2 cm lower pole cysts with benign features. There is no indication for follow-up imaging. The kidney measures 11.0 cm in maximum dimension. SPLEEN: Borderline splenomegaly. The spleen measures 12.5 cm in maximum dimension. FREE FLUID: None. US/US abdomen complete IMPRESSION: 1. Increased hepatic parenchymal heterogeneity and echogenicity could be associated with hepatocellular disease/hepatic steatosis and substantially limits visualization. Correlation with liver function tests and clinical exam recommended to determine further management. The liver contour is normal. 2. Mild fullness of the right renal pelvis. 3. Borderline splenomegaly Dictated By: Nadira Uribe MD Signed By: <Electronically signed by Nadira Uribe MD in OV> 12/04/23 0510 DD/ 1011 TD/TT: Flight Engineer Manager: Complete Blood Count Auto Di ff Reviewed date:12/09/2023 12:42:58 PM Interpretation: Performing Lab:[facility], [address] [place] [phone] Notes/Report: White Blood Count 12.3 4.8-10.8 X10*3/uL Red Blood Count 5.85 4.20-5.50 X10*6/uL Hemoglobin 16.6 12.0-16.0 g/dl Hematocrit 52.6 37.0-47.0 % Mean Corpuscular Volume 89.9 80.0-98.0 fL Mean Corpuscular Hemoglobin 28.4 27.0-33.0 pg Mean Corpuscular HGB Conc 31.6 31.0-35.0 g/dl Red Cell Distribution Width 14.6 11.0-16.0 % Platelet Count 301 160-400 X10*3/uL Mean Platelet Volume 11.4 9.4-12.3 fL Neutrophils Percent Auto 70.4 45-73 % Imm Gran Pct Auto 0.6 0.0-0.4 % Lymphocytes Percent Auto 19.6 20-40 % Monocytes Percent Auto 6.7 2-11 % Eosinophils Percent Auto 2.1 0-4 % Basophils Percent Auto 0.6 0-2 % NRBC Pct Auto 0.0 0.0-0.2 /100WBC Neutrophils Absolute Auto 8.7 2.0-8.3 x10*3/u L Imm Gran Abs Auto 0.07 0.00-0.03 X10*3/uL Lymphocytes Absolute Auto 2.4 1.2-4.9 X10*3/u L Monocytes Absolute Auto 0.8 0.1-1.2 X10*3/uL Eosinophils Absolute Auto 0.3 0.0-0.4 X10*3/u L Basophils Absolute Auto 0.1 0.0-0.2 X10*3/uL NRBC Abs Auto 0.000 0.0-0.012 X10*3/uL Comprehensive [place]. Panel Fa st Reviewed date:12/09/2023 01:18:52 PM Interpretation: Performing Lab:[facility], [address] [place] [phone] Notes/Report: Sodium 139 135-145 mmol/L Potassium 4.3 3.3-5.1 mmol/L Chloride 105 96-108 mmol/L Carbon Dioxide 28 22-29 mmol/L Anion Gap 10 12-20 Blood Urea Nitrogen 11 9-16 mg/dL Creatinine 0.82 0.5-1.4 mg/dL Estimated Glomerular Filt Rate > 60 NOTE: For -Cam[place] individuals, multiply the result by 1.210. Chronic Kidney Disease: Estimated GFR < 60 mL/min/1.73m2 Severe Kidney Disease: Estimated GFR < 15 mL/min/1.73m2 Glucose Fasting 100 60-99 mg/dL A fasting glucose from 100-125 mg/dl is considered impaired (pre-diabetes). Calcium 9.5 8.4-10.2 mg/dL Bilirubin Total 0.5 0.0-1.0 mg/dL Aspartate Amino Transferase 18 5-31 U/L Alanine Aminotransferase 21 0-31 U/L Total Protein 7.2 6.5-8.0 g/dL Albumin Level 4.0 3.5-5.0 g/dL Alkaline Phosphatase 89 39-117 U/L Lipid Panel Reviewed date:12/09/2023 02:27:15 PM Interpretation: Performing Lab:[facility], [address] [place] [phone] Notes/Report: Triglycerides 144 <150 mg/dL Desirable Triglyceride: less than 150 mg/dL Borderline High Triglyceride 150-199 mg/dL High Triglyceride: 200-499 mg/dL Very High Triglyceride: greater than or equal to 5OO mg/dL Cholesterol 152 <200 mg/dL Desirable Cholesterol: less than 200 mg/dL Borderline High Cholesterol: 200-239 mg/dL High Cholesterol: greater than 239 mg/dL LDL Cholesterol Calculated 92 <100 mg/dL Desirable LDL: less than 100 mg/dL Near Optimal/Above Optimal LDL: 110-129 mg/dL Borderline High LDL: 130-159 mg/dL High LDL: 160-189 mg/dL Very High LDL: greater than or equal to 190 mg/dL HDL Cholesterol 32 >40 mg/dL Desirable HDL: greater than 40 mg/dL Note: This HDL assay may give artificially low results in patients with liver disease. Vitamin D 25-OH Total Reviewed date:12/09/2023 02:27:28 PM Interpretation: Performing Lab:[facility], [address] [place] [phone] Notes/Report: Vitamin D 25-OH Total 42.3 >30 ng/mL Health Based Reference Values* < 20 ng/mL Deficient 20-30 ng/mL Insufficient > 30 ng/mL Sufficient *Holick MF. N Engl J Med. 2007;357:266-280 Care must be taken in interpreting Vitamin D results from different laboratories and methodologies. Published data demonstrated that results from patients undergoing hemodialysis may show a negative bias when tested with various automated 25-OH vitamin D assays when compared to LC-MS/MS. When testing samples from patients whose predominant form of Vitamin D is Vitamin D2, such as patients receiving Vitamin D2 supplementation, results that are subtherapeutic should be confirmed with another method such as LC-MS/MS. UA ClnCatch+Micro w/rflx Cul t Reviewed date:12/09/2023 12:43:32 PM Interpretation: Performing Lab:[facility], [address] [place] [phone] Notes/Report: Urine, Clean Catch Color Urine Yellow Appearance Urine Clear PH 6.0 5.0-9.0 Glucose Urine UA Negative Negative mg/dL Urine Blood Negative Negative Specific [place] - Urine 1.010 1.005-1.025 Urine Protein Negative Neg-Trace mg/dL Urine Ketones Negative Negative mg/dL Nitrite Urine Negative Negative Leukocyte Esterase Urine Negative Negative RBC Urine 0-2 0-2 /HPF WBC Urine 0-5 0-5 /HPF Squamous Epithelial Cell Urine 0-2 0-2 /HPF Bacteria Urine None Seen None Seen Hyaline Casts Urine 0-2 0-2 /LPF US abdomen olvera w elastograph y Reviewed date:02/24/2024 12:41:32 PM Interpretation: Performing Lab: Notes/Report: [address] [address] Ultrasound Report Signed Patient: Gaby Villalobos MR#: [id number] : 1955 Acct:[id number] Age/Sex: 68 / F ADM Date: 01/24/24 Loc: HO.US Attending Dr: Otoniel Lopez MD Ordering Physician: Otoniel Lopez MD Date of Service: 01/24/24 Procedure(s): US abdomen olvera w elastography Accession Number(s): [id number] cc: Otoniel Lopez MD EXAMINATION: US ABDOMEN LIMITED WITH LIVER ELASTOGRAPHY CLINICAL INFORMATION: Nonalcoholic steatohepatitis. COMPARISON: Abdominal ultrasound dated 11/18/2023; CT abdomen and pelvis dated 05/30/2022. TECHNIQUE: Real-time imaging of the abdominal viscera. Noninvasive ultrasound liver fibrosis assessment is performed using Jean [employer] point quantification shear wave elastography (pSWE) with a 5 MHz transducer. Multiple elastography samples are obtained. FINDINGS: PANCREAS: There is increased echotexture, consistent with fatty infiltration. No pancreatic mass or ductal dilatation is seen. There is no peripancreatic acute fluid collection. LIVER: The liver demonstrates normal size, contour and increased echogenicity, with pericholecystic sparing. No focal lesion or intrahepatic biliary duct dilatation. The right lobe measures 15.8 cm in length. The left lobe measures 11.7 cm in length. There is hepatopedal portal venous flow. Shear wave elastography provides a median stiffness of 1.67 m/s (reference: normal median stiffness is 0.81 - 1.22 m/s). The IQR/median stiffness to assess sampling precision is 0.13 (reference: optimal IQR/median stiffness is under 0.3). GALLBLADDER: Normal. The gallbladder is physiologically distended without evidence of stones, sludge, polyps, wall thickening or pericholecystic fluid. COMMON BILE DUCT: Normal in caliber measuring 0.3 cm in diameter. RIGHT KIDNEY: Normal. No hydronephrosis. No renal calculi or focal parenchymal lesions. The kidney measures 12.5 cm in maximum dimension. FREE FLUID: None. US/US abdomen olvera w elastography IMPRESSION: 1. There is generalized increase in hepatic echotexture, consistent with fatty infiltration or hepatocellular disease. Please correlate clinically. Characteristic pericholecystic sparing favors the provided diagnosis of nonalcoholic steatohepatitis. No focal hepatic mass or intrahepatic biliary dilatation is seen. 2. Elastography: Liver elastography measurements are consistent with a minimal risk for clinically significant liver fibrosis (METAVIR Stage F0-F1). Electronically signed by: Dickson Chauhan MD 02/23/2024 04:09 PM EDT Dictated By: Dickson Chauhan MD Signed By: <Electronically signed by Dickson Chauhan MD in OV> 02/23/24 1609 DD/ 0956 TD/TT: 01/24/24 1000 Flight Engineer Manager: RADHA Blood Urea Nitrogen Reviewed date:02/07/2024 09:43:46 AM Interpretation: Performing Lab:[facility], [address] [place] [phone] Notes/Report: Blood Urea Nitrogen 14 9-16 mg/dL Creatinine Reviewed date:02/06/2024 11:57:08 AM Interpretation: Performing Lab:[facility], [address] [place] [phone] Notes/Report: Creatinine 0.81 0.5-1.4 mg/dL Estimated Glomerular Filt Rate > 60 NOTE: For -Cameroonian individuals, multiply the result by 1.210. Chronic Kidney Disease: Estimated GFR < 60 mL/min/1.73m2 Severe Kidney Disease: Estimated GFR < 15 mL/min/1.73m2 CT lumbar spine wo con Reviewed date:03/11/2024 04:44:09 PM Interpretation: Performing Lab: Notes/Report: [address] [address] [address] Scan Report Signed Patient: Gaby Villalobos MR#: [id number] : 1955 Acct:[id number] Age/Sex: 68 / F ADM Date: 02/18/24 Loc: HO.CT Attending Dr: Otoniel Lopez MD Ordering Physician: Otoniel Lopez MD Date of Service: 02/18/24 Procedure(s): CT lumbar spine wo IV con Accession Number(s): [id number] cc: Otoniel Lopez MD EXAMINATION: CT LUMBAR SPINE WITHOUT CONTRAST CLINICAL INFORMATION: Spinal stenosis COMPARISON: None TECHNIQUE: A multidetector CT acquisition of the lumbar spine is obtained without contrast. This CT examination was performed using dose optimization techniques as appropriate, variously including the following: *Automated exposure control *Adjustment of mA and/or kV according to patient size (this includes techniques or standardized protocols for targeted exams where dose is matched to indication/reason for exam; i.e. extremities or head) *Use of iterative reconstruction technique DLP: 1284 mGycm FINDINGS: Mild lumbar levocurvature. Normal lumbar lordosis is preserved. Trace anterolisthesis at L2-L3. Vertebral body heights are maintained. There is no suspicious osseous lesion. Mild disc height loss at L2-L3. Please note canal patency is not well assessed on this examination due to inherent limitations of CT without intrathecal contrast. Within these limitations, multilevel degenerative changes with level by level detail are as follows: L1-L2: No spinal canal or neural foraminal stenosis. L2-L3: Annular disc bulge and moderate bilateral facet arthrosis with partially calcified ligamentum flavum thickening. Apparent mild spinal canal and mild bilateral neural foraminal stenosis. L3-L4: Annular disc bulge with mild bilateral facet arthrosis and ligamentum flavum thickening. No significant spinal canal stenosis. Mild bilateral neural foraminal stenosis. L4-L5: Annular disc bulge/disc osteophyte complex with superiorly migrated left subarticular/foraminal disc extrusion and moderate bilateral facet arthrosis with ligamentum flavum thickening. Apparent moderate spinal canal and subarticular zone narrowing with possible mass effect on the traversing L5 nerve roots. Severe left neural foraminal stenosis with mass effect along the exiting left L4 nerve root. Mild to moderate right neural foraminal stenosis. L5-S1: Annular disc bulge and moderate facet arthrosis. No spinal canal stenosis. Mild neural foraminal narrowing. No significant abnormalities of the paraspinal musculature. The abdominal aorta is of normal contour and caliber. Degenerative changes of the bilateral sacroiliac joints with osseous spurring, more pronounced on the right, subchondral sclerosis, and vacuum phenomenon. Mild patchy calcific atherosclerosis. Bilateral renal cysts not requiring further imaging follow-up. CT/CT lumbar spine wo IV con IMPRESSION: At L4-L5, there is apparent moderate spinal canal and subarticular zone narrowing with possible mass effect on the traversing L5 nerve roots. a superiorly migrated left subarticular/foraminal disc extrusion contributes to severe left neural foraminal stenosis with mass effect along the exiting left L4 nerve root. Electronically signed by: Gabbi Cole MD 03/11/2024 11:29 AM EDT RP Dictated By: Gabbi Cole Signed By: <Electronically signed by Gabbi Cole in OV> 03/11/24 1129 DD/ 0927 TD/TT: 02/18/24 1012 Flight Engineer Manager: REASON FOR REFERRAL Reason Lumbar degenerative disc disease Diagnosis 1 Lumbar degenerative disc disease (M51.36) Referral Organization Otoniel Lopez MD Referring Provider First Name Otoniel Referring Provider Last Name Jessica Referring Provider Speciality Internal M edicine Referred Provider [facility] Referred Provider Specialty Physical Med icine General Notes Naty Denise 09:09:11 AM EDT > info faxed Naty Denise 03/27/2024 03:08:36 PM EDT > info refaxed Naty Denise 04/02/2024 01:33:27 PM EDT > patient is aware of appt Referral Priority Routine Referral Appointment Date 04/14/2024 MEDICATIONS Medication SIG (Take, Route, Frequency, Duration) [...] tablet Orally Once a day 08/06/2016 Active IMMUNIZATIONS Vaccine Route Administration Date Status Comme nts Flu Vaccine Unknown 04/29/2012 Administered Flu Vaccine Unknown 04/19/2013 Administered [facility] Flu Vaccine Unknown 04/21/2014 Administered [facility] Fluarix Quadrivalent IM Intramuscular 04/01/2015 Admincr dhaliwal pt recieved the vaccine at [facility] in [place]. PPSV23 (Pnemovax) IM Intramuscular 07/12/2015 Administered Fluarix Quadrivalent IM Intramuscular 04/26/2016 Admincr dhaliwal pt recieved the vaccine at [facility] in [place]. Prevnar 13 IM Intramuscular 08/06/2016 Administered Fluarix Quadrivalent Unknown 04/24/2017 Administered [facility] Flu[facility]rivalent IM [facility]cular [facility] 04/14/2019 Admincr dhaliwal pt was given the vaccine at [facility] in [place]. Fluarix Quadrivalent Unknown 04/20/2020 Administered [facility] Covid Vaccine Unknown 09/15/2020 Administered Pfizer Covid Vaccine Unknown 10/06/2020 Administered Pfizer Influenza High Dose IM Intramuscular 03/27/2021 Administer ed SARS-COV-2 Pfizer Unknown 04/07/2021 Administered SARS-COV-2 Pfizer Unknown 04/02/2021 Administered PPSV23 (Pnemovax) IM Intramuscular 05/23/2021 Administered Influenza High Dose IM Intramuscular 04/20/2022 Administer ed SARS-COV-2 Pfizer Unknown 01/12/2022 Administered Shingrix Unknown 04/20/2022 Administered Shingrix Unknown 07/17/2022 Administered [facility] Influenza High Dose Unknown 04/01/2023 Administered Influenza High Dose IM Intramuscular 03/16/2024 Administer ed SOCIAL HISTORY Tobacco Use: Social History Observation Description Date Details (start date - stop date) Never Smoker NA - NA Sex Assigned At : Social History Observation Description Sex Assigned At Unknown Tobacco Use/Smoking Question Answer Notes Patient is a nonsmoker Additional Findings: Tobacco Non-User Cu rrent non-smoker, currently using no form of tobacco Alcohol Screen Question Answer Notes Did you have a drink containing alcohol in the p ast year? 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) Problem Vitamin D deficiency (E55.9) Active confirmed 78043872 Problem Atherosclerosis of aorta (I70.0) Active confirmed 42958968 Problem Kidney stone (N20.0) Active confirmed 9 7628949 Problem Lumbar disc disease (M51.9) Active confirmed 183033617 Problem Essential hypertensi on (I10) Active confirmed 61021044 Problem Low HDL (under 40) (E78.6) Active confirmed 843589341 Problem Morbid obesity due t o excess calories (E66.01) Active confirmed 468494536 Problem History of hematuria (Z87.448) Active confirmed 897051915 Problem FRASER (nonalcoholic steatohepatitis) (K75.81) Active confirmed 142868660 Problem History of bilateral mastectomy (Z90.13) Active confirmed 808136631 Problem Drug allergy (Z88.9) Active confirmed 4 13773685 Problem Pure hypercholesterolemia (E78.00) Active confirmed 075618501 Problem LIZZETTE (obstructive sle ep apnea) (G47.33) Active confirmed 88828739 Problem Lumbar degenerative disc disease (M51.36) Active confirmed 21492921 VITAL SIGNS Blood pressure diastolic 80 mm Hg 03/16/2024 Height 64 in 03/16/2024 Blood pressure systolic 122 mm Hg 03/16/2024 Weight 255 lbs 03/16/2024 BMI 43.77 kg/m2 03/16/2024 Encounters Encounter Location Date Provider Diagnosis Otoniel Lopez MD [address] [place] [id number] 03/16/2024 Otoniel Lopez Lumbar degenerative disc disease M51.36 ; FRASER (nonalcoholic steatohepatitis) K75.81 and Encounter for immunization Z23 Otoniel Lopez MD [address] [place] [id number] 12/16/2023 Otoniel Lopez Spinal stenosis of lumbosacral region M48.07 ; FRASER (nonalcoholic steatohepatitis) K75.81 ; Essential hypertension I10 ; Pure hypercholesterolemia E78.00 ; Vitamin D deficiency E55.9 and Depression screening Z13.31 Otonile Lopez MD [address] [place] [address] [id number] 12/09/2023 Otoniel Lopez Essential hypertensi on I10 ; Pure hypercholesterolemia E78.00 and Vitamin D deficiency E55.9 Otoniel Lopez MD [address] [place] [address] [id number] 06/12/2024 Otoniel Lopez Pure hypercholestero lemia E78.00 Otoniel Lopez MD [address] [place] [address] [id number] 02/06/2024 Otoniel Lopez Essential hypertensi on I10 Otoniel Lopez MD [address] [place] [address] [id number] 06/14/2023 Otoniel Lopez Lumbar disc disease M51.9 ; Essential hypertension I10 and Pure hypercholesterolemia E78.00 Otoniel Lopez MD [address] [place] [address] [id number] 10/21/2023 Otoniel Lopez MD [address] [place] [address] [id number] 10/31/2023 Otoniel Lopez FRASER (nonalcoholic steatohepatitis) K75.81 Otoniel Lopez MD [address] [place] [address] [id number] 12/06/2023 Otoniel Lopez MD [address] [place] [address] [id number] 12/16/2023 Otoniel Lopez FRASER (nonalcoholic steatohepatitis) K75.81 and Spinal stenosis of lumbosacral region M48.07 Otoniel Lopez MD [address] [place] [address] Drive [address] [place], [place] [id number] 03/03/2024 Otoniel Lopez Essential hypertensi on I10 and Pure hypercholesterolemia E78.00 ASSESSMENTS Encounter Date Diagnosis Assessment Notes Treatment Notes Treatment Clinical Notes 03/16/2024 FRASER (nonalcoholic steatohepatitis) (ICD-10 - K75.81) went over the results of the us of the liver. the elasticity was read as minimal cause of fibrosis. will repeat in couple years 03/16/2024 Lumbar degenerative disc disease (ICD-10 - M51.36) discussed the findings of the ct. there is some foraminal narrowing and has probable spinal stenosis/ is very disablling. will refer to [facility] 12/16/2023 FRASER (nonalcoholic steatohepatitis) (ICD-10 - K75.81) 12/16/2023 Spinal stenosis of lumbosacral region (ICD-10 - M48.07) THE ORDERS HAVE BEEN FAXD TO [facility]. PATIENT IS AWARE, pending diagnostic testing 12/09/2023 Essential hypertensi on (ICD-10 - I10) 12/09/2023 Pure hypercholestero lemia (ICD-10 - E78.00) 06/12/2024 Pure hypercholestero lemia (ICD-10 - E78.00) 02/06/2024 Essential hypertensi on (ICD-10 - I10) 06/14/2023 Lumbar disc disease (ICD-10 - M51.9) if not better in one month will send to [facility] Patient/Caregiver verbalizes understanding of medications side effects, interactions and warnings. 06/14/2023 Essential hypertensi on (ICD-10 - I10) doing great, will continue current regiment 03/03/2024 Essential hypertensi on (ICD-10 - I10) 03/16/2024 Encounter for immunization (ICD-10 - Z23) referral to [facility] 12/16/2023 Essential hypertensi on (ICD-10 - I10) doing well on meds, will continue current regiment 12/09/2023 Vitamin D deficiency (ICD-10 - E55.9) 06/14/2023 Pure hypercholestero lemia (ICD-10 - E78.00) doing well on meds, will continue 10/31/2023 FRASER (nonalcoholic steatohepatitis) (ICD-10 - K75.81) 12/16/2023 FRASER (nonalcoholic steatohepatitis) (ICD-10 - K75.81) 03/03/2024 Pure hypercholestero lemia (ICD-10 - E78.00) 12/16/2023 Pure hypercholestero lemia (ICD-10 - E78.00) stable, will contnue current regiment 12/16/2023 Spinal stenosis of lumbosacral region (ICD-10 - M48.07) 12/16/2023 Vitamin D deficiency (ICD-10 - E55.9) stable, will continue current regiment 12/16/2023 Depression screening (ICD-10 - Z13.31) negative screen PLAN OF TREATMENT Pending Test Test Name Order Date Electrocardiogram (EKG) 05/17/2015 CT ABD & PELVIS NO CONTRAST 05/21/2022 US ABD 11/14/2020 Urinalysis and Microscopic 12/05/2020 Urinalysis 11/08/2020 Liver Panel 06/12/2024 Lipid Panel with Reflex 06/12/2024 CT lumbar spine w con 12/16/2023 CT lumbar spine wo con 12/16/2023 XR DEXA axial skeleton 11/14/2020 US abdomen olvera w elastography 12/16/2023 US abdomen complete 10/31/2023 Next Appt Details Provider Name:Otoniel villalobos, 06/15/2024 09:00:00 AM, [address] [place] [address], [address], [phone], Provider Name:Otoniel villalobos, 12/08/2024 08:00:00 AM, [address] [place] [address], [place] [address], [place], [place], [phone], Provider Name:Otoniel villalobos, 12/15/2024 02:30:00 PM, [address] [place] [address], [place] [address], [place], [place], [phone], Insurance Providers Payer Name Payer Address Payer Phone Subscriber Number Group Number Insured Name Patient Relationship to Insured Coverage Start Date Coverage End Date [employer] [address] [place], [place] [id number] Gaby Villalobos Self - patient is the insured [employer] [place] [address] [place] [phone] [id number] Gaby Villalobos Self - patient is the insured MEDICAL (GENERAL) HISTORY Medical History History ICD Code hematuria with neg work up in 2007 hyperplastic polyp 2010 colonoscopy due in 10
--- OUTSIDE RECORDS SUMMARY | 2024-06-12 11:05 | XMS_ITS ---
Author Organization Otoniel Lopez MD Address [address] [place] [phone] Care Team Providers Care Parking Manager Name Role Phone Otnoiel Lopez Primary Care Provider REASON FOR VISIT FASTING LIPIDS Encounters Encounter Location Date Provider Diagnosis Otoniel Lopez MD [address] [place] [phone] 06/12/2024 Otoniel Lopez Pure hypercholestero lemia E78.00 ASSESSMENTS Encounter Date Diagnosis Assessment Notes Treatment Notes Treatment Clinical Notes 06/12/2024 Pure hypercholestero lemia (ICD-10 - E78.00) PLAN OF TREATMENT Pending Test Test Name Order Date Liver Panel 06/12/2024 Lipid Panel with Reflex 06/12/2024 Next Appt Details Provider Name:Otoniel villalobos, 06/15/2024 09:00:00 AM, [address], [address], [place], [place], [phone], Provider Name:Otoniel villalobos, 12/08/2024 08:00:00 AM, [address] [place] [address], [address], [place], [phone], Provider Name:Otoniel villalobos, 12/15/2024 02:30:00 PM, [address] [place] [address], [address], [place], [phone],
--- OUTSIDE RECORDS SUMMARY | 2024-06-12 11:05 | XMS_ITS ---
Author Organization Otoniel Lopez MD Address [address] [place], [place] [phone] Care Team Providers Care Tool Filer Hand Name Role Phone Otoniel Lopez Primary Care Provider ALLERGIES Allergen (clinical drug ingredient) Drug/Non Drug Allergy documented on EMR Reaction Allergy Type Onset Date Status sulfamethoxazole / trimethoprim Bactrim DS rash Drug Allergy Active amoxicillin Amoxicillin rash Drug Allergy Act mart REASON FOR REFERRAL Reason Lumbar degenerative disc disease Diagnosis 1 Lumbar degenerative disc disease (M51.36) Referral Organization Otoniel Lopez MD Referring Provider First Name Otoniel Referring Provider Last Name Jessica Referring Provider Speciality Internal M edicine Referred Provider [facility] Referred Provider Specialty Physical Med icine General Notes Naty Denise 09:09:11 AM EDT > info faCamelia pinon Annette 03/27/2024 03:08:36 PM EDT > info refaxed Camelia Annette 04/02/2024 01:33:27 PM EDT > patient is aware of appt Referral Priority Routine Referral Appointment Date 04/14/2024 REASON FOR VISIT follow up from having CT scan MEDICATIONS Medication SIG (Take, Route, Frequency, Duration) [...] High Dose IM Intramuscular 03/16/2024 Administer ed PROBLEMS Problem Type ICD Code Onset Dates Problem Status W/U Status Risk SNOMED Code Notes Problem Lumbar degenerative disc disease (M51.36) Active confirmed [id number] VITAL SIGNS BMI 43.77 kg/m2 03/16/2024 Blood pressure systolic 122 mm Hg 03/16/20 24 Blood pressure diastolic 80 mm Hg 024 Height 64 in 03/16/2024 Weight 255 lbs 03/16/2024 Encounters Encounter Location Date Provider Diagnosis Otoniel Lopez MD [address] [place] [address] Drive [address] [place], [place] [phone] 03/16/2024 Otoniel Lopez Lumbar degenerative disc disease M51.36 ; FRASER (nonalcoholic steatohepatitis) K75.81 and Encounter for immunization Z23 ASSESSMENTS Encounter Date Diagnosis Assessment Notes Treatment Notes Treatment Clinical Notes 03/16/2024 Lumbar degenerative disc disease (ICD-10 - M51.36) discussed the findings of the ct. there is some foraminal narrowing and has probable spinal stenosis/ is very disablling. will refer to [facility] 03/16/2024 RFASER (nonalcoholic steatohepatitis) (ICD-10 - K75.81) went over the results of the us of the liver. the elasticity was read as minimal cause of fibrosis. will repeat in couple years 03/16/2024 Encounter for immunization (ICD-10 - Z23) referral to [facility] PLAN OF TREATMENT Treatment Notes Assessment Notes Lumbar degenerative disc disease discuss ed the findings of the ct. there is some foraminal narrowing and has probable spinal stenosis/ is very disablling. will refer to [facility] FRASER (nonalcoholic steatohepatitis) went over the results of the us of the liver. the elasticity was read as minimal cause of fibrosis. will repeat in couple years Encounter for immunization referral to [facility] Referrals Referral Date Details 04/14/2024 04/14/2024, Lumbar d egenerative disc disease , [facility] Next Appt Details Provider Name:Otoniel Burr ier, 06/15/2024 09:00:00 AM, [address] [facility], [address], [place], [place], [phone], Provider Name:Otoniel Burr ier, 12/08/2024 08:00:00 AM, [address] [place] [address], [address], [place], [place], [phone], Provider Name:Otoniel Burr ier, 12/15/2024 02:30:00 PM, [address] [place] [address], [address], [place], [place], [phone], Progress Notes * Examination Category Sub-Category Detail Notes General Examination GENERAL APPEARANCE: alert, w ell [...]
[2024-06-12 12:28] LABS: Alanine Aminotransferase 23 U/L (0-31); Albumin Level 3.7 g/dL (3.5-5.0); Alkaline Phosphatase 78 U/L (39-117); Aspartate Amino Transferase 22 U/L (5-31); Bilirubin Direct 0.1 mg/dL (0.0-0.5); Bilirubin Total 0.4 mg/dL (0.0-1.0); Cholesterol 145 mg/dL (<200); HDL Cholesterol 31 mg/dL (>40); LDL Cholesterol Calculated 82 mg/dL (<100); Total Protein 6.6 g/dL (6.5-8.0); Triglycerides 163 mg/dL (<150)
[2024-06-12 12:41] LABS: Reflex LDLD? No
== END 2024-06-12 11:04 | disposition home or self-care (01) ==
LOC: HO.LNP 11:03
PROVIDERS: Visit Provider Internal Medicine
DX: E78.00 Pure hypercholesterolemia, unspecified (principal)
CPT/HCPCS: 80061; 80076

== ENCOUNTER 2024-10-07 10:49 | Outpatient (AMB) | payer MEDICARE, SELFPAY ==
[2024-10-07 10:58] VITALS: BP 128/76; PULSE 73; TEMP 37; O2SAT 98
--- NOTE | 2024-10-07 10:58 | MHC.OFFWIV ---
Intake Vital Signs 10/07/24 10:58 Weight 249 lb BP 128/76 Blood Pressure Location Lt brachial Position Sitting Pulse 73 Pulse Source Pulse Oximeter Temp 98.6 F Temp Source Oral Pulse Oximetry (%) 98 Oxygen Delivery Method Room Air Intake Visit Reasons: EP ? ear infection in RT ear Intake Note: Patient here for right ear pain that has been present for about 5 days. she states it has not felt right since she got water in it about 4-5 days ago. Patient Tobacco Use Status: Never used Tobacco Allergies amoxicillin Allergy (Unknown, Verified 10/07/24 11:00) Rash sulfamethoxazole [From Bactrim] Allergy (Verified 10/07/24 11:00) Rash trimethoprim [From Bactrim] Allergy (Verified 10/07/24 11:00) Rash Do you need a note to return to daycare/school/sports/work: No HPI HPI Comments History of Present Illness Details History of Present Illness - The patient is a 69-year-old female presenting with ear pain and fullness. - About four to six days ago, she experienced water ingress into her right ear. - Efforts to relieve the fullness, including the use of hydrogen peroxide, have not succeeded. - She reports a sensation of fullness and an inability to hear properly from that ear but denies having a fever, sinus pain, headaches, or fatigue. - Previously, similar symptoms were addressed with Flonase, which has not been effective this time. Physical Exam General: Cooperative, healthy appearing, comfortable, no acute distress and well developed Orientation: Patient oriented x3 Limitations: No limitations Head: Normal to inspection Ears: external ears normal bilaterally, cerumen impaction right ear canal, left ear canal with cerumen, cannot visualize TMs Nose: Normal External nose present Face and sinus: Normal facial exam Eyes: Appearance normal, both eyes and all related structures Neck: Normal visual inspection and Yes full ROM Respiratory: Normal respiratory effort and able to speak in complete sentences. Skin: No rashes or lesions noted Neuro: Patient oriented x3 Extremities: Normal to inspection [facility] Medical History Epidermal cyst of neck Surgical History History of mastectomy History of lumpectomy Family History Paternal Grandfather Cancer Social History Alcohol intake: never Patient Tobacco Use Status: Never used Tobacco Review of Systems Const All systems reviewed & are unremarkable except as noted in HPI and below Physical Exam Vital Signs: Last Vital Signs Temp 98.6 F 10/07/24 10:58 Pulse 73 10/07/24 10:58 BP 128/76 10/07/24 10:58 Pulse Ox 98 10/07/24 10:58 Oxygen Delivery Method Room Air 10/07/24 10:58 Office Procedures Cerumen Removal Details: unable to remove with irrigation or scooping, ear canals are angled upward, difficult to irrigate From which ear canal was the cerumen removed: right Removal: irrigation and otoscope w/curette Notes: patient tolerated procedure well and no complications 93501-Shj Irrigation/Lavage Cerumen Removal Details: cannot remove, duplicate 88619-Krz Irrigation/Lavage Assessment & Plan Assessment & Plan (1) Impacted cerumen of right ear: Code(s): H61.21 - Impacted cerumen, right ear Plan: The focus is on the removal of the impacted cerumen in the right ear through a cerumen flush procedure, aiming to clear the obstruction and relieve the symptoms of ear fullness and hearing impairment. The unusual canal angle is accounted for in our procedural approach. Recommended patient use Debrox drops nightly for the next 5-6 nights and then return to the clinic to re-attempt irrigation. Recommended she use it in both ears because the left ear canal does have cerumen in it as well. Also recommended she use Flonase and she looked her her with the proper technique, twice a day for the next 7 days. Patient was informed and verbally consented to the use of an ambient scribe for clinic note documentation during this visit. Orders: Orders AMB Cerumen Removal Today H61.21 - Impacted cerumen, right ear Coding Level of Care Code Est Pt Level 4 (68502) Diagnoses Impacted cerumen of right ear H61.21 CPT Codes Office Procedure - CPT: 38660-Jnm Irrigation/Lavage ([id number]) Office Procedure - CPT: 86728-Vgr Irrigation/Lavage ([id number])
--- OUTSIDE RECORDS SUMMARY | 2024-10-07 12:36 | XMS_ITS ---
Author Organization Otoniel Lopez MD Address [address] [place], [place] [phone] Care Team Providers Care Pump Installer Name Role Phone Otoniel Lopez Primary Care Provider [phone] Allergies Allergen (clinical drug ingredient) Drug/Non Drug [...] Location Date Provider Diagnosis Otoniel Lopez MD [address] [place] [phone] 06/15/2024 Otoniel Lopez Essential hypertensi on I10 [...] regiment Next Appt Details Provider Name:Otoniel villalobos, 12/08/2024 08:00:00 AM, [address] [place] [address], [place] [address], [place], [place], [phone], Provider Name:Otoniel villalobos, 12/15/2024 02:30:00 PM, [address] [place] [address], [place] [address], [place], [place], [phone], Progress Notes * Gaby WEEKS ADOB:05/1955 (69 yo F)Acc No.[id number]:06/15/2024 Progress Notes Patient:?Gaby Weeks Provider:?Otoniel Lopez MD :1955???Age:69 Y???Sex:Female D ate:06/15/2024 Address: [address] [id number] Subjective: * Chief Complaints: * ???6 MO F/U * HPI: ???Symptom(s):? patientis a 69 [facility] had steroid injections of back and it didn't help much/ pain is in lower back and no radiation. * ROS:?General/Constitutional:?Denies?Chills.?Denies?Fatigue.?Denies?Fever.?Denies?Headache.?Denies?Weigh t gain.?ENT:?Patient denies?decreased sense of smell , any loss of taste , sore throat.?Denies?Sore throat.?Respiratory:?Denies?Cough.?Denies?Shortness of breath at rest.?Denies?Shortness of breath with exertion.?Cardiovascular:?Denies?Chest pain at rest.?Denies?Chest pain with exertion.?Denies?Dizziness.?Denies?Palpitations.?Denies?Shortness of breath.?Gastrointestinal:?Denies?Diarrhea.?Denies?Nausea.?Musculoskeletal:?Patient denies?muscle aches.?Peripheral Vascular:?Patient denies?red and blue toes.? * Medical History:? * Surgical History:? * Hospitalization/Major Diagno stic Procedure:? * Medications:?TakingVitamin D (Cholecalciferol) 25 MCG (1000 UT) Capsule [...] 1 TABLET ONCE DAILY Orally Once a dayNot- Taking/PRNNaproxen 500 MG Tablet TAKE 1 TABLET BY MOUTH NEEDED EVERY 12 HOURS Medication List reviewed and reconciled with the patientNot-Taking/PRN Naproxen 500 MG Tablet TAKE 1 TABLET BY MOUTH NEEDED EVERY 12 HOURS Medication List reviewed and reconciled with the patient * Allergies:?Bactrim DS: rashA moxicillin: maxi[Allergies Verified] Objective: * Vitals:?Ht: 64, Wt:251, BMI: 43.08, BP:122/76 weight is down 4 pound since 03-16-24. * ???Past Orders: ???Lab:Liver Panel (Order Da te - 06/12/2024) (Collection Date - 06/12/2024) ? Value Reference Range ?Bilirubin Total 0.4 0.0- 1.0 - mg/dL ?Bilirubin Direct 0.1 0.0 -0.5 - mg/dL ?Aspartate Amino Transferase 22 5-31 - U/L ?Alanine Aminotransferase 23 0-31 - U/L ?Total Protein 6.6 6.5-8. 0 - g/dL ?Albumin Level 3.7 3.5-5. 0 - g/dL ?Alkaline Phosphatase 78 39-117 - U/L ???Lab:Lipid Panel with Refl ex (Order Date - 06/12/2024) (Collection Date - 06/12/2024) ? Value Reference Range ?Triglycerides 163 H <150 - mg/dL ?Cholesterol 145 <200 - m g/dL ?LDL Cholesterol Calculated 82 <100 - mg/dL ?HDL Cholesterol 31 L >40 - mg/dL * Examination: ???General Examination: ?GENERAL APPEARANCE:?alert, well hydrated, in no distress , female.?HEAD:?normocephalic.?HEART:?no murmurs, rubs, gallops , regular rate and rhythm.?LUNGS:?no wheezes, rales, rhonchi , good air movement , clear to auscultation bilaterally.? Assessment: * Assessment: 1.?Essential hypertension - I10?2.?Pure hypercholesterolemia - E78.00? Plan: * Treatment: 2.?Pure hypercholesterolemia ? Continue Atorvastatin Calcium Tablet, 40 MG, TAKE 1 TABLET ONCE DAILY, Orally, Once a day.?? Notes: doing well on meds. will continue curent regiment?? * Procedure Codes:? * * Sign off status: Completed true * Provider:?Otoniel Lopez MD Date:?1 08/16/2023 Generated for Rayshawn hanson/Alex/eTransmitting on:?10/07/2024 12:36 PM EDT History and Physical Notes * [...]
--- OUTSIDE RECORDS SUMMARY | 2024-10-07 12:36 | XMS_ITS ---
Author Organization Otoniel Lopez MD Address [address] [place] [phone] Care Team Providers Care Form Setter Helper Name Role Phone Otoniel Lopez Primary Care Provider [phone] REASON FOR VISIT Quality metric question Encounters Encounter Location Date Provider Diagnosis Otoniel Lopez MD [address] [facility] [address] [place] [phone] 08/10/2024 Otoniel Lopez Plan Of Treatment Next Appt Details Provider Name:Otoniel villalobos, 12/08/2024 08:00:00 AM, [address] [place] [address], [address], [phone], Provider Name:Otoniel villalobos, 12/15/2024 02:30:00 PM, [address] [place] [address], [address], [phone], Progress Notes * Gaby WEEKS ADOB:05/1955 (69 yo F)Acc No.[id number]:08/10/2024 Patient:?MEGANE Gaby Cheyanne :1955???Age:69 Y???Sex:Female Address: [address], [place] [address] * * Date:?
--- OUTSIDE RECORDS SUMMARY | 2024-10-07 12:36 | XMS_ITS ---
Author Organization Otoniel Lopez MD Address [address] [place], [place] [phone] Care Team Providers Care Laser/Electro Optics Technician Name Role Phone Otoniel Lopez Primary Care Provider Results Component Value Reference Range Notes Liver Panel Reviewed date:06/12/2024 02:00:05 PM Interpretation: Performing Lab:[facility], [address] [place] [phone] Notes/Report: Bilirubin Total 0.4 0.0-1.0 mg/dL Bilirubin Direct 0.1 0.0-0.5 mg/dL Aspartate Amino Transferase 22 5-31 U/L Alanine Aminotransferase 23 0-31 U/L Total Protein 6.6 6.5-8.0 g/dL Albumin Level 3.7 3.5-5.0 g/dL Alkaline Phosphatase 78 39-117 U/L Lipid Panel with Reflex Reviewed date:06/12/2024 01:50:21 PM Interpretation: Performing Lab:[facility], [address] [place] [phone] Notes/Report: Triglycerides 163 <150 mg/dL Desirable Triglyceride: [...] Location Date Provider Diagnosis Otoniel Lopez MD [address] [place] [phone] 06/12/2024 Otoniel Lopez Pure hypercholestero lemia E78.00 Assessments Encounter Date Diagnosis (ICD Code) Assessment Notes Treatment Notes Treatment Clinical Notes Section Notes 06/12/2024 Pure hypercholesterolemia (ICD-10 - E78.00) Plan Of Treatment Next Appt Details Provider Name:Otoniel villalobos, 12/08/2024 08:00:00 AM, [address] [place] [address], [address], [phone], Provider Name:Otoniel villalobos, 12/15/2024 02:30:00 PM, [address] [place] [address], [place] [address], [place], [place], [phone], Progress Notes * Gaby WEEKS ADOB:05/1955 (69 yo F)Acc No.[id number]:06/12/2024 Progress Note Patient:?Gaby WEEKS Provider:?Otoniel Lopez MD :1955???Age:69 Y???Sex:Female D ate:06/12/2024 Address:[address] [place] [address] [id number] Subjective: * Chief Complaints: * ???1. FASTING LIPIDS. * Medical History:? Objective: * Vitals:? Assessment: * Assessment: 1.?Pure hypercholesterolemia - E78.00 (Primary)??? Plan: * Treatment: * Procedure Codes:?42785 VENIP UNCT, ROUTINE* * * The named appointment provid er may or may not be the originator of this progress note, and it is not deemed complete until electronically signed by the appointment provider. Sign off status: Pending * Provider:?Otoniel Lopez MD Date:?1 08/13/2023 Generated for Rayshawn hanson/Alex/Anitting on:?10/07/2024 12:36 PM EDT
== END 2024-10-07 12:19 | disposition home or self-care (01) ==
PROVIDERS: PCP Internal Medicine; Visit Provider Physician Assistant
DX: H61.21 Impacted cerumen, right ear (principal)

== ENCOUNTER → 2024-10-07 10:49 | Outpatient (BNVA) | payer MEDICARE, SELFPAY | PROVIDERS: PCP Internal Medicine; Visit Provider Physician Assistant | DX: H61.21 Impacted cerumen, right ear (principal) | CPT/HCPCS: 69210; 99212 ==

== ENCOUNTER 2024-12-08 10:31 | Outpatient (REF) | payer MEDICARE, SELFPAY ==
[2024-12-08 10:34] LABS: MANUAL DIFF FLAG NO
[2024-12-08 10:43] LABS: Basophils Absolute Auto 0.1 X10*3/uL (0.0-0.2); Basophils Percent Auto 0.6 % (0-2); Eosinophils Absolute Auto 0.3 X10*3/uL (0.0-0.4); Eosinophils Percent Auto 2.4 % (0-4); Hematocrit 52.2 % (37.0-47.0); Hemoglobin 16.6 g/dl (12.0-16.0); Imm Gran Abs Auto 0.06 X10*3/uL (0.00-0.03); Imm Gran Pct Auto 0.5 % (0.0-0.4); Lymphocytes Absolute Auto 2.9 X10*3/uL (1.2-4.9); Lymphocytes Percent Auto 24.8 % (20-40); Mean Corpuscular HGB Conc 31.8 g/dl (31.0-35.0); Mean Corpuscular Hemoglobin 28.6 pg (27.0-33.0); Mean Corpuscular Volume 89.8 fL (80.0-98.0); Mean Platelet Volume 11.4 fL (9.4-12.3); Monocytes Absolute Auto 0.8 X10*3/uL (0.1-1.2); Monocytes Percent Auto 6.7 % (2-11); Neutrophils Absolute Auto 7.5 x10*3/uL (2.0-8.3); Platelet Count 291 X10*3/uL (160-400); Red Blood Count 5.81 X10*6/uL (4.20-5.50); Red Cell Distribution Width 14.9 % (11.0-16.0); White Blood Count 11.5 X10*3/uL (4.8-10.8)
[2024-12-08 10:58] LABS: Appearance Urine Clear; Color Urine Dark Yellow; Glucose Urine UA Negative (Negative); Leukocyte Esterase Urine Small (1+) (Negative); Nitrite Urine Negative (Negative); PH 5.5 (5.0-9.0); Specific Gravity - Urine 1.025 (1.005-1.025); UMIC TRIGGER UACC YES; Urine Blood Negative (Negative); Urine Ketones Trace mg/dL (Negative); Urine Protein Trace mg/dL (Neg-Trace)
[2024-12-08 11:06] LABS: Alanine Aminotransferase 24 U/L (0-31); Albumin Level 4.2 g/dL (3.5-5.0); Alkaline Phosphatase 87 U/L (39-117); Anion Gap 13 (12-20); Aspartate Amino Transferase 25 U/L (5-31); Bilirubin Direct 0.2 mg/dL (0.0-0.5); Bilirubin Total 0.5 mg/dL (0.0-1.0); Blood Urea Nitrogen 16 mg/dL (9-16); Calcium 9.5 mg/dL (8.4-10.2); Carbon Dioxide 27 mmol/L (22-29); Chloride 106 mmol/L (96-108); Cholesterol 158 mg/dL (<200); Estimated Glomerular Filt Rate > 60; Glucose Fasting 90 mg/dL (60-99); HDL Cholesterol 31 mg/dL (>40); LDL Cholesterol Calculated 97 mg/dL (<100); Potassium 4.5 mmol/L (3.3-5.1); Sodium 141 mmol/L (135-145); Total Protein 6.9 g/dL (6.5-8.0); Triglycerides 153 mg/dL (<150)
[2024-12-08 11:10] LABS: Bacteria Urine None Seen (None Seen); Hyaline Casts Urine 0-2 /LPF (0-2); RBC Urine 0-2 /HPF (0-2); Transitional Epi Cells Urine Present; UACC Culture Trigger YES; WBC Urine 0-5 /HPF (0-5)
--- OUTSIDE RECORDS SUMMARY | 2024-12-08 12:18 | XMS_ITS ---
Author Organization Otoniel Lopez MD Address [address] [place], [place] [phone] Care Team Providers Care Agile Scrum Master Name Role Phone Otoniel Lopez Primary Care Provider Results Component Value Reference Range Notes Complete Blood Count Auto Di ff Reviewed date:12/08/2024 11:51:17 AM Interpretation: Performing Lab:[facility], [address] [place] [phone] Notes/Report: White Blood Count 11.5 4.8-10.8 X10*3/uL [...] NRBC Abs Auto 0.000 0.0-0.012 X10*3/uL Comprehensive [place]. Panel Fa st Reviewed date:12/08/2024 11:48:43 AM Interpretation: Performing Lab:[facility], [address] [place] [phone] Notes/Report: Sodium 141 135-145 mmol/L Potassium 4.5 [...] Panel Reviewed date:12/08/2024 11:45:02 AM Interpretation: Performing Lab:[facility], [address] [place] [phone] Notes/Report: Bilirubin Direct 0.2 0.0-0.5 mg/dL Lipid Panel Reviewed date:12/08/2024 11:46:16 AM Interpretation: Performing Lab:[facility], [address] [place] [phone] Notes/Report: Triglycerides 153 <150 mg/dL Desirable Triglyceride: [...] t Reviewed date:12/08/2024 12:16:30 PM Interpretation: Performing Lab:[facility], [address] [place] [phone] Notes/Report: Urine, Clean Catch Color Urine Dark Yellow Appearance Urine Clear PH 5.5 5.0-9.0 Glucose Urine UA Negative Negative mg/dL Urine Blood Negative Negative Specific [place] - Urine 1.025 1.005-1.025 Urine Protein Trace [...] Otoniel Lopez MD [address] [place], [place] [phone] 12/08/2024 Otoniel Lopez Essential hypertensi on I10 ; Pure hypercholesterolemia E78.00 and FRASER (nonalcoholic steatohepatitis) K75.81 Assessments Encounter Date Diagnosis (ICD Code) Assessment Notes Treatment Notes Treatment Clinical Notes Section Notes 12/08/2024 Essential hypertensi on (ICD-10 - I10) 12/08/2024 Pure hypercholesterolemia (ICD-10 - E78.00) 12/08/2024 FRASER (nonalcoholic steatohepatitis) (ICD-10 - K75.81) Plan Of Treatment Next Appt Details Provider Name:Otoniel Burr ier, 12/15/2024 02:30:00 PM, [address], [address], [place], [place], [phone], Progress Notes * Gaby WEEKS ADOB:05/1955 (69 yo F)Acc No.[id number]:12/08/2024 Progress Note Patient:?Gaby WEEKS [place]yanne Provider:?Otoniel Lopez MD :1955???Age:69 Y???Sex:Female D ate:12/08/2024 Address:[address] [place], [place] [id number] Subjective: * Chief Complaints: * ???1. FASTING LABS. * Medical History:? Objective: * Vitals:? Assessment: * Assessment: 1.?Essential hypertension - I10 (Primary)???2.?Pure hypercholesterolemia - E78.00???3.?FRASER (nonalcoholic steatohepatitis) - K75.81??? Plan: * Treatment: 2.?Pure hypercholesterolemia ?LAB: Complete Blood Count Auto Diff (Collection Date & Time - 12/08/2024 08:00 AM) ?LAB: Comprehensive [place]. Panel Fast (Collection Date & Time - 12/08/2024 08:00 AM) ?LAB: Liver Panel (Collection Date & Time - 12/08/2024 08:00 AM) ?LAB: Lipid Panel (Collection Date & Time - 12/08/2024 08:00 AM) ?LAB: UA ClnCatch+Micro w/rflx Cult (Collection Date & Time - 12/08/2024 08:00 AM) 3.?FRASER (nonalcoholic steato hepatitis)?LAB: Complete Blood Count Auto Diff (Collection Date & Time - 12/08/2024 08:00 AM) ?LAB: [facility] [place]. Panel Fast (Collection Date & Time - 12/08/2024 08:00 AM) ?LAB: Liver Panel (Collection Date & Time - 12/08/2024 08:00 AM) ?LAB: Lipid Panel (Collection Date & Time - 12/08/2024 08:00 AM) ?LAB: UA ClnCatch+Micro w/rflx Cult (Collection Date & Time - 12/08/2024 08:00 AM) * Procedure Codes:?82417 VENIP UNCT, ROUTINE* * * The named appointment provid er may or may not be the originator of this progress note, and it is not deemed complete until electronically signed by the appointment provider. Sign off status: Pending * Provider:?Otoniel Lopez MD Date:?0 12/08/2024 Generated for Rayshawn hanson/Alex/Anitting on:?12/08/2024 12:18 PM EDT
== END 2024-12-08 10:32 | disposition home or self-care (01) ==
LOC: HO.LNP 10:31
PROVIDERS: Visit Provider Internal Medicine
DX: I10 Essential (primary) hypertension (principal); E78.00 Pure hypercholesterolemia, unspecified; K75.81 Nonalcoholic steatohepatitis (NASH)
CPT/HCPCS: 80053; 80061; 80076; 81001; 82248; 85025; 87086

== ENCOUNTER 2025-05-07 08:18 | Day surgery (SDC) | payer MEDICARE, SELFPAY ==
--- OUTSIDE RECORDS SUMMARY | 2024-03-03 05:17 | XMS_ITS ---
Author Organization Otoniel Lopez MD Address [address] [place] [phone] Care Team Providers Care Check Grader Name Role Phone Otoniel Lopez Primary Care Provider REASON FOR VISIT RF Medications Medication SIG (Take, Route, Frequency, Duration) Notes Start Date End Date Status Atenolol 50 MG TAKE 1 TABLET ONCE D AILY Orally Once a day for 90 days Active Atorvastatin Calcium 40 MG TAKE 1 TABLET ONCE DAILY Orally Once a day for 90 days Active Encounters Encounter Location Date Provider Diagnosis Otoniel Lopez MD [address] [place] [phone] 03/03/2024 Otoniel Lopez Essential hypertensi on I10 and Pure hypercholesterolemia E78.00 Assessments Encounter Date Diagnosis (ICD Code) Assessment Notes Treatment Notes Treatment Clinical Notes Section Notes 03/03/2024 Essential hypertensi on (ICD-10 - I10) 03/03/2024 Pure hypercholesterolemia (ICD-10 - E78.00) Plan Of Treatment Medication Medication Name Sig Start Date Stop Date Notes Atenolol 50 MG TAKE 1 TABLET ONCE D AILY Orally Once a day for 90 days Atorvastatin Calcium 40 MG TAKE 1 TABLET ONCE DAILY Orally Once a day for 90 days Next Appt Details Provider Name:Otoniel Burr ier, 07/06/2025 07:45:00 AM, [address] [place] [address], [address] [facility], [place], [place], [phone], Provider Name:Otoniel Burr ier, 07/12/2025 11:00:00 AM, [address] [place] [address], [place] [address], [place], [place], [phone], Provider Name:Otoniel Burr ier, 12/30/2025 07:00:00 AM, [address] [place] [address], [place] [address], [place], [place], [phone], Provider Name:Otoniel Burr ier, 01/06/2026 11:00:00 AM, [address] [place] [address], [place] [address], [place], [place], [phone], Progress Notes * Gaby WEEKS ADOB:05/1955 (68 yo F)Acc No.[id number]:03/03/2024 Patient: Anil Gaby milligan Cheyanne :1955 A ge:68 Y S ex:Female Address:[address] [place] [phone] * Refills Refill Atenolol Tablet, 50 MG, Orally, 90, TAKE 1 TABLET ONCE DAILY, Once a day, 90 days, Refills=4 Refill Atorvastatin Calcium Tablet, 40 MG, Orally, 90, TAKE 1 TABLET ONCE DAILY, Once a day, 90 days, Refills=4 * true * Date: Generated for Rayshawn hanson/Alex/Skylar on: 03:10 PM EDT
--- OUTSIDE RECORDS SUMMARY | 2024-03-16 07:15 | XMS_ITS ---
Author Organization Otoniel Lopez MD Address [address] [place], [place] [phone] Care Team Providers Care Life Skills Worker Name Role Phone Otoniel Lopez Primary Care Provider [phone] Allergies Allergen (clinical drug ingredient) Drug/Non Drug Allergy documented on EMR Reaction Allergy Type Onset Date Status sulfamethoxazole / trimethoprim Bactrim DS rash Drug Allergy Active amoxicillin Amoxicillin rash Drug Allergy Act mart Reason For Referral Reason Lumbar degenerative disc disease Diagnosis 1 Lumbar degenerative disc disease (M51.36) Referral Organization Otoniel Lopez MD Referring Provider First Name Otoniel Referring Provider Last Name Jessica Referring Provider Speciality Internal M edicine Referred Provider [facility] Referred Provider Specialty Physical Med icine General Notes Naty Denise 09:09:11 AM EDT > info faxCamelia malik Annette 03/27/2024 03:08:36 PM EDT > info refaxed Camelia Annette 04/02/2024 01:33:27 PM EDT > patient is aware of Klaudia obregon Patti A 06/25/2024 09:36:59 AM EST > OFFICE NOTED RECD Referral Priority Routine Referral Appointment Date 04/14/2024 REASON FOR VISIT follow up from having CT scan Medications Medication SIG (Take, Route, Frequency, Duration) Notes Start Date End Date Status Naproxen 500 MG TAKE 1 TABLET BY DEANN TH NEEDED EVERY 12 HOURS for 30 Not-Taking Atenolol 50 MG TAKE 1 TABLET ONCE DAILY Orally Once a day for 90 days Active Atorvastatin Calcium 40 MG TAKE 1 TABLET ONCE DAILY Orally Once a day for 90 days Active Vitamin D (Cholecalciferol) 25 MCG (1000 UT) 2 tablet Orally Once a day 08/06/2016 Active Immunizations Vaccine Route Administration Date Status Comme nts Influenza High Dose IM Intramuscular 03/16/2024 Administer ed Problems Problem Type SNOMED Code ICD Code Onset Dates Problem Status W/U Status Risk Notes Problem [id number] Lumbar degenerative disc disease (M51.36) Active confirmed Vital Signs Blood pressure systolic 122 mm Hg 03/16/20 24 Blood pressure diastolic 80 mm Hg 024 Height 64 in 03/16/2024 Weight 255 lbs 03/16/2024 BMI 43.77 kg/m2 03/16/2024 Encounters Encounter Location Date Provider Diagnosis Otoniel Lopez MD [address] [place] [address] [place] [phone] 03/16/2024 Otoniel Lopez Lumbar degenerative disc disease M51.36 ; FRASER (nonalcoholic steatohepatitis) K75.81 and Encounter for immunization Z23 Assessments Encounter Date Diagnosis (ICD Code) Assessment Notes Treatment Notes Treatment Clinical Notes Section Notes 03/16/2024 Lumbar degenerative disc disease (ICD-10 - M51.36) discussed the findings of the ct. there is some foraminal narrowing and has probable spinal stenosis/ is very disablling. [facility] 03/16/2024 FRASER (nonalcoholic steatohepatitis) (ICD-10 - K75.81) went over the results of the us of the liver. the elasticity was read as minimal cause of fibrosis. will repeat in couple years 03/16/2024 Encounter for immunization (ICD-10 - Z23) referral to [facility] Plan Of Treatment Treatment Notes Assessment Notes Lumbar degenerative disc disease discuss ed the findings of the ct. there is some foraminal narrowing and has probable spinal stenosis/ is very disablling. will refer to [facility] FRASER (nonalcoholic steatohepatitis) went over the results of the us of the liver. the elasticity was read as minimal cause of fibrosis. will repeat in couple years Encounter for immunization referral to [facility] Referrals Referral Date Details 03/16/2024 03/16/2024, Lumbar d egenerative disc disease , [facility] Next Appt Details Provider Name:Otoniel Burr ier, 07/06/2025 07:45:00 AM, [address] [place] [address], Suite [facility], [place], [place], [phone], Provider Name:Otoniel Burr ier, 07/12/2025 11:00:00 AM, [address] [place] [address], Suite [facility], [place], [place], [phone], Provider Name:Otoniel Burr ier, 12/30/2025 07:00:00 AM, [address] [place] [address], Suite [facility], [place], [place], [phone], Provider Name:Otoniel Burr ier, 01/06/2026 11:00:00 AM, [address] [place] [address], [address], [place], [place], [phone], Progress Notes * Gaby WEEKS ADOB:05/1955 (68 yo F)Acc No.[id number]:03/16/2024 Patient: Gaby Noyola Provider: Finn Lopez MD :1955 A ge:68 Y S ex:Female Date:03/16/2024 Address:[address] [place], [place] [id number] Subjective: * Chief Complaints: * f ollow up from having CT scan * HPI: S ymptom(s): patient is a 68 yo female here for follow up liver and back, and follow up recent CT scan. * ROS: G eneral/Constitutional: Denies C hills. D enies F atigue. D enies F ever. D enies H eadache. E NT: Patient denies d ecreased sense of smell , any loss of taste , sore throat. D enies S ore throat. R espiratory: Denies C ough. D enies S hortness of breath at rest. D enies S hortness of breath with exertion. G astrointestinal: Denies D iarrhea. D enies N ausea. M usculoskeletal: Patient denies m uscle aches. P eripheral Vascular: Patient denies r ed and blue toes. * Medical History: * Surgical History: * Hospitalization/Major Diagno stic Procedure: * Medications: T akingVitamin D (Cholecalciferol) 25 MCG (1000 UT) Capsule 2 tablet Orally Once a dayAtenolol 50 MG Tablet TAKE 1 TABLET ONCE DAILY Orally Once a dayAtorvastatin Calcium 40 MG Tablet TAKE 1 TABLET ONCE DAILY Orally Once a dayTaking Vitamin D (Cholecalciferol) 25 MCG (1000 UT) Capsule 2 tablet Orally Once a dayTaking Atenolol 50 MG Tablet TAKE 1 TABLET ONCE DAILY Orally Once a dayTaking Atorvastatin Calcium 40 MG Tablet TAKE 1 TABLET ONCE DAILY Orally Once a dayNot-Taking/PRNNaproxen 500 MG Tablet TAKE 1 TABLET BY MOUTH NEEDED EVERY 12 HOURS Medication List reviewed and reconciled with the patientNot-Taking/PRN Naproxen 500 MG Tablet TAKE 1 TABLET BY MOUTH NEEDED EVERY 12 HOURS Medication List reviewed and reconciled with the patient * Allergies: B actrim DS: rashAmoxicillin: rashyes[Allergies Verified] Objective: * Vitals: H t: 64, Wt:255, BMI:43.77, BP:122/80. * Examination: G eneral Examination: GENERAL APPEARANCE: alert, well hydrated, in no distress . SKIN: good turgor. HEART: regular rate and rhythm, no murmurs, rubs, gallops. LUNGS: no wheezes, rales, rhonchi, good air movement, clear to auscultation bilaterally. BACK: abnormal TENDER IN lower back. ? Assessment: * Assessment: 1. L umbar degenerative disc disease - M51.36 (Primary) 2 . N MEGHNA (nonalcoholic steatohepatitis) - K75.81 3 . E ncounter for immunization - Z23 Plan: * Treatment: 2. N MEGHNA (nonalcoholic steatohepatitis) Notes: went over the results of the us of the liver. the elasticity was read as minimal cause of fibrosis. will repeat in couple years 3. E namunter for immunization Notes: [facility] * Immunizations: Influenza High Dose : 0.5 mL (Dose No:1) (Route: Intramuscular) given by Georgie Reynaga on Left Deltoid * Procedure Codes: 9 0662 FLU VACC PRSV FREE INC [id number] ADMN FLU VAC NO FEE SCHED SAME DAY * Preventive Medicine: Immunizations: I nfluenza H ave you had a flu shot since the most recent March 01? Y es. * * Sign off status: Completed true * Provider: Finn Lopez MD Date: 0 03/16/2024 Generated for Rayshawn hanson/Alex/Anitting on: 03:09 PM EDT History and Physical Notes * HPI (History of Present Illness) Category Sub-Category Detail Notes Category Not es Symptom(s) patient is a 68 yo female here for follow up liver and back, and follow up recent CT scan. Examination Category Sub-Category Detail Notes Category Not es General Examination GENERAL APPEARANCE: alert, w ell hydrated, in no distress HEART: regular rate and rhy thm, no murmurs, rubs, gallops LUNGS: no wheezes, rales, r honchi, good air movement, clear to auscultation bilaterally SKIN: good turgor BACK: abnormal TENDER IN l ower back Consultation Request Notes Referral Date Referring Provider Referred Provider Not gregg 03/16/2024 Otoniel Lopez, [facility] Lumbar degenerative disc disease
--- OUTSIDE RECORDS SUMMARY | 2024-06-12 03:30 | XMS_ITS ---
Author Organization Otoniel Lopez MD Address [address] [place], [place] [phone] Care Team Providers Care Manufacturing Quality Technician Name Role Phone Otoniel Lopez Primary Care Provider Results Component Value Reference Range Notes Liver Panel Reviewed date:06/12/2024 02:00:05 PM Interpretation: Performing Lab:[facility], [address] [place] [phone] Notes/Report: Bilirubin Total 0.4 0.0-1.0 mg/dL Bilirubin Direct 0.1 0.0-0.5 mg/dL Aspartate Amino Transferase 22 5-31 U/L Alanine Aminotransferase 23 0-31 U/L Total Protein 6.6 6.5-8.0 g/dL Albumin Level 3.7 3.5-5.0 g/dL Alkaline Phosphatase 78 39-117 U/L Lipid Panel with Reflex Reviewed date:06/12/2024 01:50:21 PM Interpretation: Performing Lab:[facility], [address] [place] [phone] Notes/Report: Triglycerides 163 <150 mg/dL Desirable Triglyceride: less than 150 mg/dL Borderline High Triglyceride 150-199 mg/dL High Triglyceride: 200-499 mg/dL Very High Triglyceride: greater than or equal to 5OO mg/dL Cholesterol 145 <200 mg/dL Desirable Cholesterol: less than 200 mg/dL Borderline High Cholesterol: 200-239 mg/dL High Cholesterol: greater than 239 mg/dL LDL Cholesterol Calculated 82 <100 mg/dL Desirable LDL: less than 100 mg/dL Near Optimal/Above Optimal LDL: 110-129 mg/dL Borderline High LDL: 130-159 mg/dL High LDL: 160-189 mg/dL Very High LDL: greater than or equal to 190 mg/dL HDL Cholesterol 31 >40 mg/dL Desirable HDL: greater than 40 mg/dL Note: This HDL assay may give artificially low results in patients with liver disease. REASON FOR VISIT FASTING LIPIDS Encounters Encounter Location Date Provider Diagnosis Otoniel Lopez MD [address] [place] [phone] 06/12/2024 Otoniel Lopez Pure hypercholestero lemia E78.00 Assessments Encounter Date Diagnosis (ICD Code) Assessment Notes Treatment Notes Treatment Clinical Notes Section Notes 06/12/2024 Pure hypercholesterolemia (ICD-10 - E78.00) Plan Of Treatment Next Appt Details Provider Name:Otoniel villalobos, 07/06/2025 07:45:00 AM, [address] [place] [address], [address], [phone], Provider Name:Otoniel villalobos, 07/12/2025 11:00:00 AM, [address] [place] [address], [address], [phone], Provider Name:Otoniel villalobos, 12/30/2025 07:00:00 AM, [address] [place] [address], [address], [phone], Provider Name:Otoniel villalobos, 01/06/2026 11:00:00 AM, [address] [place] [address], [phone], Progress Notes * Gaby WEEKS ADOB:05/1955 (70 yo F)Acc No.[id number]:06/12/2024 Progress Note Patient: Gaby WARREN Provider: Finn Lopez MD :1955 A ge:69 Y S ex:Female Date:06/12/2024 Address:[address] [place], [place] [phone] Subjective: * Chief Complaints: * 1 . FASTING LIPIDS. * Medical History: Objective: * Vitals: Assessment: * Assessment: 1. P ure hypercholesterolemia - E78.00 (Primary) Plan: * Treatment: * Procedure Codes: 3 6415 VENIPUNCT, ROUTINE* * * The named appointment provid er may or may not be the originator of this progress note, and it is not deemed complete until electronically signed by the appointment provider. Sign off status: Pending * Provider: Finn Lopez MD Date: 1 08/13/2023 Generated for Rayshawn hanson/Alex/Anitting on: 03:10 PM EDT
--- OUTSIDE RECORDS SUMMARY | 2024-06-15 05:00 | XMS_ITS ---
Author Organization Otoniel Lopez MD Address [address] [place], [place] [phone] Care Team Providers Care Payroll Accounting Specialist Name Role Phone Otoniel Lopez Primary Care Provider [phone] Allergies Allergen (clinical drug ingredient) Drug/Non Drug Allergy documented on EMR Reaction Allergy Type Onset Date Status sulfamethoxazole / trimethoprim Bactrim DS rash Drug Allergy Active amoxicillin Amoxicillin rash Drug Allergy Act mart REASON FOR VISIT 6 MO F/U Medications Medication SIG (Take, Route, Frequency, Duration) Notes Start Date End Date Status Naproxen 500 MG TAKE 1 TABLET BY DEANN TH NEEDED EVERY 12 HOURS for 30 Not-Taking Atenolol 50 MG TAKE 1 TABLET ONCE DAILY Orally Once a day Active Atorvastatin Calcium 40 MG TAKE 1 TABLET ONCE DAILY Orally Once a day Active Vitamin D (Cholecalciferol) 25 MCG (1000 UT) 2 tablet Orally Once a day 08/06/2016 Active Vital Signs Blood pressure systolic 122 mm Hg 06/15/20 24 Blood pressure diastolic 76 mm Hg 024 Height 64 in 06/15/2024 Weight 251 lbs 06/15/2024 BMI 43.08 kg/m2 06/15/2024 weight is down 4 pound since 03-16-24 Encounters Encounter Location Date Provider Diagnosis Otoniel Lopez MD [address] [place] [phone] 06/15/2024 Otoniel Lopez Essential hypertensi on I10 and Pure hypercholesterolemia E78.00 Assessments Encounter Date Diagnosis (ICD Code) Assessment Notes Treatment Notes Treatment Clinical Notes Section Notes 06/15/2024 Essential hypertensi on (ICD-10 - I10) stable, continue with present meds 06/15/2024 Pure hypercholesterolemia (ICD-10 - E78.00) doing well on meds. will continue curent regiment Plan Of Treatment Medication Medication Name Sig Start Date Stop Date Notes Atenolol 50 MG TAKE 1 TABLET ONCE D AILY Orally Once a day Atorvastatin Calcium 40 MG TAKE 1 TABLET ONCE DAILY Orally Once a day Treatment Notes Assessment Notes Essential hypertension stable, continue with present meds Pure hypercholesterolemia doing well on meds. will continue curent regiment Next Appt Details Provider Name:Otoniel villalobos, 07/06/2025 07:45:00 AM, [address] [place] [address], [phone], Provider Name:Otoniel villalobos, 07/12/2025 11:00:00 AM, [address] [place] [address], [phone], Provider Name:Otoniel villalobos, 12/30/2025 07:00:00 AM, [address] [place] [address], [phone], Provider Name:Otoniel villalobos, 01/06/2026 11:00:00 AM, [address] [place] [address], [phone], Progress Notes * Gaby WEEKS ADOB:05/1955 (69 yo F)Acc No.[id number]:06/15/2024 Progress Notes Patient: Anil milligan Gaby A Provider: Finn Lopez MD :1955 A ge:69 Y S ex:Female Date:06/15/2024 Address:[place], [id number] Subjective: * Chief Complaints: * 6 MO F/U * HPI: S ymptom(s): patientis a 69 yo female here for 6 onth follow up visit, had steroid injections of back and it didn't help much/ pain is in lower back and no radiation. * ROS: G eneral/Constitutional: Denies C hills. D enies F atigue. D enies F ever. D enies H eadache. D enies W eight gain. E NT: Patient denies d ecreased sense of smell , any loss of taste , sore throat. D enies S ore throat. R espiratory: Denies C ough. D enies S hortness of breath at rest. D enies S hortness of breath with exertion. C ardiovascular: Denies C hest pain at rest. D enies C hest pain with exertion. D enies D izziness. D enies P alpitations. D enies S hortness of breath. G astrointestinal: Denies D iarrhea. D enies [...] Verified] Objective: * Vitals: H t: 64, Wt:251, BMI:43.08, BP:122/76 weight is down 4 pound since 03-16-24. * P ast Orders: L ab:Liver Panel (Order Date - 06/12/2024) (Collection Date - 06/12/2024) Value Reference Range Bilirubin Total 0.4 0.0-1.0 - mg/dL Bilirubin Direct 0.1 0.0-0.5 - mg/dL Aspartate Amino Transferase 22 5-31 - U/L Alanine Aminotransferase 23 0-31 - U/L Total Protein 6.6 6.5-8.0 - g/dL Albumin Level 3.7 3.5-5.0 - g/dL Alkaline Phosphatase 78 39-117 - U/L L ab:Lipid Panel with Reflex (Order Date - 06/12/2024) (Collection Date - 06/12/2024) Value Reference Range Triglycerides 163 H <150 - mg/dL Cholesterol 145 <200 - mg/dL LDL Cholesterol Calculated 82 <100 - mg/dL HDL Cholesterol 31 L >40 - mg/dL * Examination: G eneral Examination: GENERAL APPEARANCE: a lert, well hydrated, in no distress , female. HEAD: n ormocephalic. HEART: n o murmurs, rubs, gallops , regular rate and rhythm. LUNGS: n o wheezes, rales, rhonchi , good air movement , clear to auscultation bilaterally. Assessment: * Assessment: 1. E ssential hypertension - I10 2 . P ure hypercholesterolemia - E78.00 Plan: * Treatment: 2. P ure hypercholesterolemia Continue Atorvastatin Calcium Tablet, 40 MG, TAKE 1 TABLET ONCE DAILY, Orally, Once a day. ? Notes: doing well on meds. will continue curent regiment * Procedure Codes: * * Sign off status: Completed true * Provider: Finn Lopez MD Date: 1 08/16/2023 Generated for Jgi margie/Alex/eTransmitting on: 03:10 PM EDT History and Physical Notes * HPI (History of Present Illness) Category Sub-Category Detail Notes Category Not es Symptom(s) patientis a 69 yo female here for 6 onth follow up visit, had steroid injections of back and it didn't help much/ pain is in lower back and no radiation Examination Category Sub-Category Detail Notes Category Not es General Examination GENERAL APPEARANCE: alert, w ell hydrated, in no distress , female HEAD: normocephalic HEART: no murmurs, rubs, ga llops , regular rate and rhythm LUNGS: no wheezes, rales, r honchi , good air movement , clear to auscultation bilaterally
--- OUTSIDE RECORDS SUMMARY | 2024-08-10 08:35 | XMS_ITS ---
Author Organization Otoniel Lopez MD Address [address] [place] [phone] Care Team Providers Care Hand Edger Name Role Phone Otoniel Lopez Primary Care Provider [phone] REASON FOR VISIT Quality metric question Encounters Encounter Location Date Provider Diagnosis Otoniel Lopez MD [address] [facility] [address] [place] [phone] 08/10/2024 Otoniel Lopez Plan Of Treatment Next Appt Details Provider Name:Otoniel villalobos, 07/06/2025 07:45:00 AM, [address] [place] [address], [address] [place] [address], [phone], Provider Name:Otoniel villalobos, 07/12/2025 11:00:00 AM, [address] [place] [address], [address], [phone], Provider Name:Otoniel villalobos, 12/30/2025 07:00:00 AM, [address] [place] [address], [address], [phone], Provider Name:Otoniel Burr ier, 01/06/2026 11:00:00 AM, [address], [address], [place], [phone], Progress Notes * Gaby WEEKS ADOB:05/1955 (69 yo F)Acc No.[id number]:08/10/2024 Patient: Anil Gaby DEXTER :1955 A ge:69 Y S ex:Female Address:[address] [place] [address] [place] [phone] * true * Date: Generated for Rayshawn hanson/Alex/Anitting on: 03:09 PM EDT
--- OUTSIDE RECORDS SUMMARY | 2024-11-10 07:45 | XMS_ITS ---
Author Organization Otoniel Lopez MD Address [address] [place], [place] [phone] Care Team Providers Care Commercial Manager Name Role Phone Otoniel Lopez Primary Care Provider [phone] Allergies Allergen (clinical drug ingredient) Drug/Non Drug Allergy documented on EMR Reaction Allergy Type Onset Date Status sulfamethoxazole / trimethoprim Bactrim DS rash Drug Allergy Active amoxicillin Amoxicillin rash Drug Allergy Act mart REASON FOR VISIT right ear ache since September 14 Medications Medication SIG (Take, Route, Frequency, Duration) Notes Start Date End Date Status Atenolol 50 MG TAKE 1 TABLET ONCE DAILY Orally Once a day Active Atorvastatin Calcium 40 MG TAKE 1 TABLET ONCE DAILY Orally Once a day Active Vitamin D (Cholecalciferol) 25 MCG (1000 UT) 2 tablet Orally Once a day 08/06/2016 Active Naproxen 500 MG TAKE 1 TABLET BY DEANN TH NEEDED EVERY 12 HOURS for 30 Not-Taking Vital Signs Blood pressure systolic 124 mm Hg 11/11/19 25 Blood pressure diastolic 76 mm Hg 025 Height 64 in 11/10/2024 Weight 252 lbs 11/10/2024 BMI 43.25 kg/m2 11/10/2024 Encounters Encounter Location Date Provider Diagnosis Otoniel Lopez MD [address] [place] [address] [place] [phone] 11/10/2024 Otoniel Lopez Cerumen impaction H61.20 Assessments Encounter Date Diagnosis (ICD Code) Assessment Notes Treatment Notes Treatment Clinical Notes Section Notes 11/10/2024 Cerumen impaction (ICD-10 - H61.20) Plan Of Treatment Next Appt Details Provider Name:Otoniel villalobos, 07/06/2025 07:45:00 AM, [address] [place] [address], [address] [place] [address], [phone], Provider Name:Otoniel villalobos, 07/12/2025 11:00:00 AM, [address] [place] [address], Suite [facility], [place], [place], [phone], Provider Name:Otoniel villalobos, 12/30/2025 07:00:00 AM, [address] [place] [address], [address], [phone], Provider Name:Otoniel villalobos, 01/06/2026 11:00:00 AM, [address] [place] [address], [address], [phone], Procedure Notes * Category Sub-Category Detail Notes Cerumen removal Procedure right ear, irrig ated with water/H2O2 Post-procedure Pt tolerated procedu re well and tm normal and hearing back to normal Progress Notes * Gaby WEEKS ADOB:05/1955 (69 yo F)Acc No.[id number]:11/10/2024 Progress Notes Patient: Gaby WARREN A Provider: Finn Lopez MD :1955 A ge:69 Y S ex:Female Date:11/10/2024 Address: [address] [id number] Subjective: * Chief Complaints: * r ight ear ache since September 14 * HPI: S ymptom(s): patient is a 69 yo fmela here with complaint of right ear pain. * ROS: G eneral/Constitutional: Denies C hills. D enies F atigue. D enies F ever. D enies H eadache. E NT: Admits B locked ear(s). D enies E ar pain, c /o? right ear ache. D enies S ore throat. R espiratory: Denies C ough. D enies S hortness of breath at rest. D enies S hortness of breath with exertion. G astrointestinal: Denies D iarrhea. D enies N ausea. * Medical History: * Surgical History: * Hospitalization/Major Diagno stic Procedure: * Medications: T akingVitamin D (Cholecalciferol) 25 MCG (1000 UT) Capsule 2 tablet Orally Once a day Atenolol 50 MG Tablet TAKE 1 TABLET ONCE DAILY Orally Once a day Atorvastatin Calcium 40 MG Tablet TAKE 1 TABLET ONCE DAILY Orally Once a day Taking Vitamin D (Cholecalciferol) 25 MCG (1000 UT) Capsule 2 tablet Orally Once a day Taking Atenolol 50 MG Tablet TAKE 1 TABLET ONCE DAILY Orally Once a day Taking Atorvastatin Calcium 40 MG Tablet TAKE 1 TABLET ONCE DAILY Orally Once a day Not-Taking/PRNNaproxen 500 MG Tablet TAKE 1 TABLET BY MOUTH NEEDED EVERY 12 HOURS Not-Taking/PRN Naproxen 500 MG Tablet TAKE 1 TABLET BY MOUTH NEEDED EVERY 12 HOURS * Allergies: B actrim DS: rashAmoxicillin: rashyes[Allergies Verified] Objective: * Vitals: H t: 64, Wt: 252, BMI:43.25, BP:124/76, Wt-k.31. * Examination: G eneral Examination: GENERAL APPEARANCE: a lert, well hydrated, in no distress.? HEAD: n ormocephalic. EARS: R IGHT EAR with cerumen impaction. SKIN: g ood turgor. Assessment: * Assessment: 1. C erumen impaction - H61.20 (Primary) Plan: * Treatment: * Procedures: C erumen removal: Procedure r ight ear, irrigated with water/H2O2. P ost-procedure P t tolerated procedure well and tm normal and hearing back to normal. ? * Procedure Codes: * * Sign off status: Completed true * Provider: Finn Lopez MD Date: 0 11/10/2024 Generated for Rayshawn hanson/Alex/Anitting on: 1 03:09 PM EDT History and Physical Notes * HPI (History of Present Illness) Category Sub-Category Detail Notes Category Not es Symptom(s) patient is a 69 yo fmela here with complaint of right ear pain Examination Category Sub-Category Detail Notes Category Not es General Examination GENERAL APPEARANCE: alert, w ell hydrated, in no distress HEAD: normocephalic EARS: RIGHT EAR with cerum en impaction SKIN: good turgor
--- OUTSIDE RECORDS SUMMARY | 2024-12-08 04:00 | XMS_ITS ---
Author Organization Otoniel Lopez MD Address [address] [place], [place] [phone] Care Team Providers Care Planning Division Superintendent Name Role Phone Otoniel Lopez Primary Care Provider Results Component Value Reference Range Notes Complete Blood Count Auto Di ff Reviewed date:12/08/2024 11:51:17 AM Interpretation: Performing Lab:[facility], [address] [place] [phone] Notes/Report: White Blood Count 11.5 4.8-10.8 X10*3/uL Red Blood Count 5.81 4.20-5.50 X10*6/uL Hemoglobin 16.6 12.0-16.0 g/dl Hematocrit 52.2 37.0-47.0 % Mean Corpuscular Volume 89.8 80.0-98.0 fL Mean Corpuscular Hemoglobin 28.6 27.0-33.0 pg Mean Corpuscular HGB Conc 31.8 31.0-35.0 g/dl Red Cell Distribution Width 14.9 11.0-16.0 % Platelet Count 291 160-400 X10*3/uL Mean Platelet Volume 11.4 9.4-12.3 fL Neutrophils Percent Auto 65.0 45-73 % Imm Gran Pct Auto 0.5 0.0-0.4 % Lymphocytes Percent Auto 24.8 20-40 % Monocytes Percent Auto 6.7 2-11 % Eosinophils Percent Auto 2.4 0-4 % Basophils Percent Auto 0.6 0-2 % NRBC Pct Auto 0.0 0.0-0.2 /100WBC Neutrophils Absolute Auto 7.5 2.0-8.3 x10*3/u L Imm Gran Abs Auto 0.06 0.00-0.03 X10*3/uL Lymphocytes Absolute Auto 2.9 1.2-4.9 X10*3/u L Monocytes Absolute Auto 0.8 0.1-1.2 X10*3/uL Eosinophils Absolute Auto 0.3 0.0-0.4 X10*3/u L Basophils Absolute Auto 0.1 0.0-0.2 X10*3/uL NRBC Abs Auto 0.000 0.0-0.012 X10*3/uL Comprehensive [place]. Panel Fa st Reviewed date:12/08/2024 11:48:43 AM Interpretation: Performing Lab:[facility], [address] [place] [phone] Notes/Report: Sodium 141 135-145 mmol/L Potassium 4.5 3.3-5.1 mmol/L Chloride 106 96-108 mmol/L Carbon Dioxide 27 22-29 mmol/L Anion Gap 13 12-20 Blood Urea Nitrogen 16 9-16 mg/dL Creatinine 0.86 0.5-1.4 mg/dL Estimated Glomerular Filt Rate > 60 Chronic Kidney Disease: Estimated GFR < 60 mL/min/1.73m2 Severe Kidney Disease: Estimated GFR < 15 mL/min/1.73m2 Glucose Fasting 90 60-99 mg/dL Calcium 9.5 8.4-10.2 mg/dL Bilirubin Total 0.5 0.0-1.0 mg/dL Aspartate Amino Transferase 25 5-31 U/L Alanine Aminotransferase 24 0-31 U/L Total Protein 6.9 6.5-8.0 g/dL Albumin Level 4.2 3.5-5.0 g/dL Alkaline Phosphatase 87 39-117 U/L Liver Panel Reviewed date:12/08/2024 11:45:02 AM Interpretation: Performing Lab:[facility], [address] [place] [phone] Notes/Report: Bilirubin Direct 0.2 0.0-0.5 mg/dL Lipid Panel Reviewed date:12/08/2024 11:46:16 AM Interpretation: Performing Lab:[facility], [address] [place] [phone] Notes/Report: Triglycerides 153 <150 mg/dL Desirable Triglyceride: less than 150 mg/dL Borderline High Triglyceride 150-199 mg/dL High Triglyceride: 200-499 mg/dL Very High Triglyceride: greater than or equal to 5OO mg/dL Cholesterol 158 <200 mg/dL Desirable Cholesterol: less than 200 mg/dL Borderline High Cholesterol: 200-239 mg/dL High Cholesterol: greater than 239 mg/dL LDL Cholesterol Calculated 97 <100 mg/dL Desirable LDL: less than 100 mg/dL Near Optimal/Above Optimal LDL: 110-129 mg/dL Borderline High LDL: 130-159 mg/dL High LDL: 160-189 mg/dL Very High LDL: greater than or equal to 190 mg/dL HDL Cholesterol 31 >40 mg/dL Desirable HDL: greater than 40 mg/dL Note: This HDL assay may give artificially low results in patients with liver disease. UA ClnCatch+Micro w/rflx Cul t Reviewed date:12/08/2024 12:16:30 PM Interpretation: Performing Lab:[facility], [address] [place] [phone] Notes/Report: Urine, Clean Catch Color Urine Dark Yellow Appearance Urine Clear PH 5.5 5.0-9.0 Glucose Urine UA Negative Negative mg/dL Urine Blood Negative Negative Specific [place]ia - Urine 1.025 1.005-1.025 Urine Protein Trace Neg-Trace mg/dL Urine Ketones Trace Negative mg/dL Nitrite Urine Negative Negative Leukocyte Esterase Urine Small (1+) Negative RBC Urine 0-2 0-2 /HPF WBC Urine 0-5 0-5 /HPF Squamous Epithelial Cell Urine 3-5 0-2 /HPF Transitional Epi Cells Urine Present Bacteria Urine None Seen None Seen Hyaline Casts Urine 0-2 0-2 /LPF REASON FOR VISIT FASTING LABS Encounters Encounter Location Date Provider Diagnosis Otoniel Lopez MD [address] [place] [phone] 12/08/2024 Otoniel Lopez Essential hypertensi on I10 ; Pure hypercholesterolemia E78.00 and FRASER (nonalcoholic steatohepatitis) K75.81 Assessments Encounter Date Diagnosis (ICD Code) Assessment Notes Treatment Notes Treatment Clinical Notes Section Notes 12/08/2024 Essential hypertensi on (ICD-10 - I10) 12/08/2024 Pure hypercholesterolemia (ICD-10 - E78.00) 12/08/2024 FRASER (nonalcoholic steatohepatitis) (ICD-10 - K75.81) Plan Of Treatment Next Appt Details Provider Name:Otoniel villalobos, 07/06/2025 07:45:00 AM, [address] [place] [address], Suite [facility], [place], [place], [phone], Provider Name:Otoniel villalobos, 07/12/2025 11:00:00 AM, [address] [place] [address], Suite [facility], [place], [place], [phone], Provider Name:Otoniel villalobos, 12/30/2025 07:00:00 AM, [address] [place] [address], Suite [facility], [place], [place], [phone], Provider Name:Otoniel villalobos, 01/06/2026 11:00:00 AM, [address] [place] [address], Suite [facility], [place], [place], [phone], Progress Notes * Gaby WEEKS ADOB:05/1955 (70 yo F)Acc No.[id number]:12/08/2024 Progress Note Patient: Gaby WARREN Provider: Finn Lopez MD :1955 A ge:69 Y S ex:Female Date:12/08/2024 Address:[address] [place] [address] [address] [id number] Subjective: * Chief Complaints: * 1 . FASTING LABS. * Medical History: Objective: * Vitals: Assessment: * Assessment: 1. E ssential hypertension - I10 (Primary) 2 . P ure hypercholesterolemia - E78.00 3 . N MEGHNA (nonalcoholic steatohepatitis) - K75.81 Plan: * Treatment: 2. P ure hypercholesterolemia L AB: Complete Blood Count Auto Diff (Collection Date & Time - 12/08/2024 08:00 AM) L AB: Comprehensive [place]. Panel Fast (Collection Date & Time - 12/08/2024 08:00 AM) L AB: Liver Panel (Collection Date & Time - 12/08/2024 08:00 AM) L AB: Lipid Panel (Collection Date & Time - 12/08/2024 08:00 AM) L AB: UA ClnCatch+Micro w/rflx Cult (Collection Date & Time - 12/08/2024 08:00 AM) 3. N MEGHNA (nonalcoholic steatohepatitis) L AB: Complete Blood Count Auto Diff (Collection Date & Time - 12/08/2024 08:00 AM) L AB: Comprehensive [place]. Panel Fast (Collection Date & Time - 12/08/2024 08:00 AM) L AB: Liver Panel (Collection Date & Time - 12/08/2024 08:00 AM) L AB: Lipid Panel (Collection Date & Time - 12/08/2024 08:00 AM) L AB: UA ClnCatch+Micro w/rflx Cult (Collection Date & Time - 12/08/2024 08:00 AM) * Procedure Codes: 3 6415 VENIPUNCT, ROUTINE* * * The named appointment provid er may or may not be the originator of this progress note, and it is not deemed complete until electronically signed by the appointment provider. Sign off status: Pending * Provider: Finn Lopez MD Date: 0 12/08/2024 Generated for Rayshawn hanson/Alex/Anitting on: 03:09 PM EDT
--- OUTSIDE RECORDS SUMMARY | 2024-12-15 12:30 | XMS_ITS ---
Author Organization Otoniel Lopez MD Address [address] [place], [place] [id number] Care Team Providers Care Packaging Operator Name Role Phone Otoniel Lopez Primary Care Provider [phone] Allergies Allergen (clinical drug ingredient) Drug/Non Drug Allergy documented on EMR Reaction Allergy Type Onset Date Status sulfamethoxazole / trimethoprim Bactrim DS rash Drug Allergy Active amoxicillin Amoxicillin rash Drug Allergy Act mart REASON FOR VISIT COMP EXAM Medications Medication SIG (Take, Route, Frequency, Duration) Notes Start Date End Date Status Atorvastatin Calcium 40 MG TAKE 1 TABLET ONCE DAILY Orally Once a day Active Atenolol 50 MG TAKE 1 TABLET ONCE DAILY Orally Once a day Active Naproxen 500 MG TAKE 1 TABLET BY DEANN TH NEEDED EVERY 12 HOURS for 30 Not-Taking Vitamin D (Cholecalciferol) 25 MCG (1000 UT) 2 tablet Orally Once a day 08/06/2016 Active Social History Tobacco Use: Social History Observation Description Date Details (start date - stop date) Never Smoker NA - NA Tobacco Use/Smoking Question Answer Notes Patient is a nonsmoker Additional Findings: Tobacco Non-User Cu rrent non-smoker, currently using no form of tobacco Alcohol Screen Question Answer Notes Did you have a drink containing alcohol in the p ast year? No Points 0 Interpretation Negative Encounters Encounter Location Date Provider Diagnosis Otoniel Lopez MD [address] [place] [address] [address] [place], [place] [phone] 12/15/2024 Otoniel Lopez Plan Of Treatment Next Appt Details Provider Name:Otoniel villalobos, 07/06/2025 07:45:00 AM, [address] [place] [address], Suite [facility], [place], [place], [phone], Provider Name:Otoniel villalobos, 07/12/2025 11:00:00 AM, [address] [place] [address], [place] [address], [place], [place], [phone], Provider Name:Otoniel villalobos, 12/30/2025 07:00:00 AM, [address] [place] [address], [place] [address], [place], [place], [phone], Provider Name:Otoniel villalobos, 01/06/2026 11:00:00 AM, [address] [place] [address], [place] [address], [place], [place], [phone], Progress Notes * Gaby WEEKS ADOB:05/1955 (70 yo F)Acc No.[id number]:12/15/2024 Patient: Gaby WARREN Provider: Finn Lopez MD :1955 A ge:69 Y S ex:Female Date:12/15/2024 Address:[address] [place], [place] [address], [id number] Subjective: * Chief Complaints: * 1 . COMP EXAM. * HPI: D epression Screening: PHQ-9 L ittle interest or pleasure in doing things N ot at all, F eeling down, depressed, or hopeless N ot at all, T rouble falling or staying asleep, or sleeping too much N ot at all, F eeling tired or having little energy N ot at all, P oor appetite or overeating N ot at all, F eeling bad about yourself or that you are a failure, or have let yourself or your family down N ot at all, T rouble concentrating on things, such as reading the newspaper or watching television N ot at all, M oving or speaking so slowly that other people could have noticed; or the opposite, being so fidgety or restless that you have been moving around a lot more than usual N ot at all, T houghts that you would be better off or of hurting yourself in some way N ot at all, T otal Score 0 . C ommunication Needs: Communication Needs D oes the patient have a hearing impairment N o, D oes the patient have a vision impairment? Y es, I f yes, what is the vision impairment? G lasses, D oes the patient have a cognition impairment? N o. F all Risk: History H ave you had any falls with injury in the past year? N o, H ave you had two or more falls in the past year? N o. S LIBBY Questions: SDOH Questions I n the past year have you been worried about losing housing? N o, I n the past year have you or any family members you live with been unable to get any of the following when it was really needed? Check all that apply: N one. * Medical History: H ematuria with neg work up in 2007, Hyperplastic polyp 2011 colonoscopy due in . * Family History: F ather: alive 93 yrs. M other: 85 yrs. 1 brother(s) . 1 son(s) . . Father-Healthy Mother-Arthritis, Denies mental health/substance abuse family history, Denies mental health/substance abuse family history, No pertinent family medical history, No pertinent family medical history. * Social History: T obacco Use: T obacco Use/Smoking P atient is a n onsmoker, A dditional Findings: Tobacco Non-User C urrent non-smoker, currently using no form of tobacco. D rugs/Alcohol: A lcohol Screen D id you have a drink containing alcohol in the past year? N o, P oints 0 , I nterpretation N egative. M iscellaneous: C affeine: yes, frequency:, 1-2 cups per day. Children: yes. Exercise: no. Home smoke detector use: yes. Housing: owning. Marital status: . Occupation: Retired. Pets: 1 dog. Travel outside of the [place]: no. * Medications: T aking Vitamin D (Cholecalciferol) 25 MCG (1000 UT) Capsule 2 tablet Orally Once a day , Taking Atenolol 50 MG Tablet TAKE 1 TABLET ONCE DAILY Orally Once a day , Taking Atorvastatin Calcium 40 MG Tablet TAKE 1 TABLET ONCE DAILY Orally Once a day , Not-Taking/PRN Naproxen 500 MG Tablet TAKE 1 TABLET BY MOUTH NEEDED EVERY 12 HOURS * Allergies: B actrim DS: rash, Amoxicillin: rash. Objective: * Vitals: * P ast Orders: L ab:UA ClnCatch+Micro w/rflx Cult (Order Date - 12/08/2024) (Collection Date & Time - 12/08/2024 08:00 AM) Value Reference Range Color Urine Dark Yellow - Appearance Urine Clear - PH 5.5 5.0-9.0 - Glucose Urine UA Negative Negative - mg/dL Urine Blood Negative Negative - Specific [place] - Urine 1.025 1.005-1.025 - Urine Protein Trace Neg-Trace - mg/dL Urine Ketones Trace Negative - mg/dL Nitrite Urine Negative Negative - Leukocyte Esterase Urine Small (1+) A Negative - RBC Urine 0-2 0-2 - /HPF WBC Urine 0-5 0-5 - /HPF Squamous Epithelial Cell Urine 3-5 0-2 - /HP F Bacteria Urine None Seen None Seen - Hyaline Casts Urine 0-2 0-2 - /LPF Transitional Epi Cells Urine Present - L ab:Complete Blood Count Auto Diff (Order Date - 12/08/2024) (Collection Date & Time - 12/08/2024 08:00 AM) Value Reference Range White Blood Count 11.5 H 4.8-10.8 - X10*3/uL Red Blood Count 5.81 H 4.20-5.50 - X10*6/uL Hemoglobin 16.6 H 12.0-16.0 - g/dl Hematocrit 52.2 H 37.0-47.0 - % Mean Corpuscular Volume 89.8 80.0-98.0 - fL Mean Corpuscular Hemoglobin 28.6 27.0-33.0 - pg Mean Corpuscular HGB Conc 31.8 31.0-35.0 - g/ dl Red Cell Distribution Width 14.9 11.0-16.0 - % Platelet Count 291 160-400 - X10*3/uL Mean Platelet Volume 11.4 9.4-12.3 - fL Neutrophils Percent Auto 65.0 45-73 - % Imm Gran Pct Auto 0.5 H 0.0-0.4 - % Lymphocytes Percent Auto 24.8 20-40 - % Monocytes Percent Auto 6.7 2-11 - % Eosinophils Percent Auto 2.4 0-4 - % Basophils Percent Auto 0.6 0-2 - % NRBC Pct Auto 0.0 0.0-0.2 - /100WBC Neutrophils Absolute Auto 7.5 2.0-8.3 - x10* 3/uL Imm Gran Abs Auto 0.06 H 0.00-0.03 - X10*3/uL Lymphocytes Absolute Auto 2.9 1.2-4.9 - X10* 3/uL Monocytes Absolute Auto 0.8 0.1-1.2 - X10*3/ uL Eosinophils Absolute Auto 0.3 0.0-0.4 - X10* 3/uL Basophils Absolute Auto 0.1 0.0-0.2 - X10*3/ uL NRBC Abs Auto 0.000 0.0-0.012 - X10*3/uL L ab:Comprehensive [place]. Panel Fast (Order Date - 12/08/2024) (Collection Date & Time - 12/08/2024 08:00 AM) Value Reference Range Sodium 141 135-145 - mmol/L Bilirubin Total 0.5 0.0-1.0 - mg/dL Aspartate Amino Transferase 25 5-31 - U/L Alanine Aminotransferase 24 0-31 - U/L Total Protein 6.9 6.5-8.0 - g/dL Albumin Level 4.2 3.5-5.0 - g/dL Alkaline Phosphatase 87 39-117 - U/L Potassium 4.5 3.3-5.1 - mmol/L Chloride 106 96-108 - mmol/L Carbon Dioxide 27 22-29 - mmol/L Anion Gap 13 12-20 - Blood Urea Nitrogen 16 9-16 - mg/dL Creatinine 0.86 0.5-1.4 - mg/dL Estimated Glomerular Filt Rate > 60 - Glucose Fasting 90 60-99 - mg/dL Calcium 9.5 8.4-10.2 - mg/dL L ab:Liver Panel (Order Date - 12/08/2024) (Collection Date & Time - 12/08/2024 08:00 AM) Value Reference Range Bilirubin Direct 0.2 0.0-0.5 - mg/dL L ab:Lipid Panel (Order Date - 12/08/2024) (Collection Date & Time - 12/08/2024 08:00 AM) Value Reference Range Triglycerides 153 H <150 - mg/dL Cholesterol 158 <200 - mg/dL LDL Cholesterol Calculated 97 <100 - mg/dL HDL Cholesterol 31 L >40 - mg/dL Assessment: Plan: * Treatment: * * The named appointment provid er may or may not be the originator of this progress note, and it is not deemed complete until electronically signed by the appointment provider. Sign off status: Pending * Provider: Finn Lopez MD Date: 0 12/15/2024 Generated for Rayshawn hanson/Alex/Skylar on: 1 03:08 PM EDT History and Physical Notes * HPI (History of Present Illness) Category Sub-Category Detail Notes Category Not es Depression Screening PHQ-9 Little inte rest or pleasure in doing things: Not at all Feeling down, depressed, or hopeless: No t at all Trouble falling or staying asleep, or sl eeping too much: Not at all Feeling tired or having little energy: N ot at all Poor appetite or overeating: Not at all Feeling bad about yourself o r that you are a failure, or have let yourself or your family down: Not at all Trouble concentrating on thi ngs, such as reading the newspaper or watching television: Not at all Moving or speaking so slowly that other people could have noticed; or the opposite, being so fidgety or restless that you have been moving around a lot more than usual: Not at all Thoughts that you would be b rachel off or of hurting yourself in some way: Not at all Total Score: 0 SDOH Questions SDOH Questions In the past year have you been worried about losing housing?: No In the past year have you or any family members you live with been unable to get any of the following when it was really needed? Check all that apply:: None Fall Risk History Have you had any falls with injury i n the past year?: No Have you had two or more falls in the year?: No Communication Needs Communication Needs Does the patient have a hearing impairment: No Does the patient have a vision impairmen t?: Yes If yes, what is the vision impairment?: Glasses Does the patient have a cognition impair ment?: No
--- OUTSIDE RECORDS SUMMARY | 2024-12-31 07:00 | XMS_ITS ---
Author Organization Otoniel Lopez MD Address [address] [place], [place] [phone] Care Team Providers Care Software Reliability Engineer Name Role Phone Otoniel Lopez Primary Care Provider Allergies Allergen (clinical drug ingredient) Drug/Non Drug Allergy documented on EMR Reaction Allergy Type Onset Date Status sulfamethoxazole / trimethoprim Bactrim DS rash Drug Allergy Active amoxicillin Amoxicillin rash Drug Allergy Act mart REASON FOR VISIT COMP EXAM Medications Medication SIG (Take, Route, Frequency, Duration) Notes Start Date End Date Status Vitamin D (Cholecalciferol) 25 MCG (1000 UT) 2 tablet Orally Once a day 08/06/2016 Active Atenolol 50 MG TAKE 1 TABLET ONCE DAILY Orally Once a day Active Atorvastatin Calcium 40 MG TAKE 1 TABLET ONCE DAILY Orally Once a day Active Naproxen 500 MG TAKE 1 TABLET BY DEANN TH NEEDED EVERY 12 HOURS for 30 Not-Taking Social History Tobacco Use: Social History Observation [...] ast year? No Points 0 Interpretation Negative Vital Signs Blood pressure systolic 122 mm Hg 01/01/20 25 Blood pressure diastolic 76 mm Hg 025 Height 64 in 12/31/2024 Weight 252 lbs 12/31/2024 BMI 43.25 kg/m2 12/31/2024 Encounters Encounter Location Date Provider Diagnosis Otoniel Lopez MD [address] [place] [address] Drive [address] [place], [place] [phone] 12/31/2024 Otoniel Lopez Back pain M54.9 ; Essential hypertension I10 ; Pure hypercholesterolemia E78.00 ; Vitamin D deficiency E55.9 ; Encounter for screening for malignant neoplasm of colon Z12.11 ; History of bilateral mastectomy Z90.13 ; Encounter for screening for malignant neoplasm of rectum Z12.12 and Depression screening Z13.31 Assessments Encounter Date Diagnosis (ICD Code) Assessment Notes Treatment Notes Treatment Clinical Notes Section Notes 12/31/2024 Back pain (ICD-10 - M54.9) 12/31/2024 Essential hypertensi on (ICD-10 - I10) doing well,will continue current regiment 12/31/2024 Pure hypercholesterolemia (ICD-10 - E78.00) well controlled, will continue current regiment 12/31/2024 Vitamin D deficiency (ICD-10 - E55.9) stable, will continue current regiment 12/31/2024 Encounter for screen ing for malignant neoplasm of colon (ICD-10 - Z12.11) order faxed to [facility] 12/31/2024 History of bilateral mastectomy (ICD-10 - Z90.13) doing well 12/31/2024 Encounter for screen ing for malignant neoplasm of rectum (ICD-10 - Z12.12) 12/31/2024 Depression screening (ICD-10 - Z13.31) negative screen Plan Of Treatment Medication Medication Name Sig Start Date Stop Date Notes Vitamin D (Cholecalciferol) 25 MCG (1000 UT) 2 tablet Orally Once a day 08/06/2016 Atenolol 50 MG TAKE 1 TABLET ONCE D AILY Orally Once a day Atorvastatin Calcium 40 MG TAKE 1 TABLET ONCE DAILY Orally Once a day Treatment Notes Assessment Notes Essential hypertension doing well,will c ontinue current regiment Pure hypercholesterolemia well controlle d, will continue current regiment Vitamin D deficiency stable, will contin ue current regiment Encounter for screening for malignant neoplasm of colon order faxed to [facility] History of bilateral mastectomy doing we ll Depression screening negative screen Pending Test Test Name Order Date COLOGUA12/31/2024 Next Appt Details Follow Up: 6 Months, Reason: Provider Name:Otoniel villalobos, 07/06/2025 07:45:00 AM, [address] [place] [address], Suite [facility], [place], [place], [phone], Provider Name:Otoniel villalobos, 07/12/2025 11:00:00 AM, [address] [place] [address], Suite [facility], [place], [place], [phone], Provider Name:Otoniel villalobos, 12/30/2025 07:00:00 AM, [address] [place] [address], Suite [facility], [place], [place], [phone], Provider Name:Otoniel villalobos, 01/06/2026 11:00:00 AM, [address] [place] [address], Suite [facility], [place], [place], [phone], Progress Notes * Gaby WEEKS ADOB:05/1955 (69 yo F)Acc No.[id number]:12/31/2024 Patient: Gaby WARREN Provider: Finn Lopez MD :1955 A ge:69 Y S ex:Female Date:12/31/2024 Address:[address] [place] [address] [id number] Subjective: * Chief Complaints: * C OMP EXAM * HPI: S ymptom(s): patient is a 69 yo female here for review of recent labs and follow up of chronic issues. D epression Screening: PHQ-9 L ittle interest [...] at all, T otal Score 0 . I nterpretation and Intervention D epression Screening Findings N egative, F ollow-Up for Depression : review of PHQ-9 found negative result, no follow-up needed. C ommunication Needs: Communication Needs D oes [...] Check all that apply: N one. * ROS: G eneral/Constitutional: Change in appetite d enies. C hills d enies. F ever d enies. O phthalmologic: Blurred vision d enies. D ischarge d enies. P ain d enies. E NT: Decreased hearing d enies. S ore throat d enies.?Swollen glands d enies. E ndocrine: Cold intolerance d enies. E xcessive thirst d enies. H eat intolerance d enies. W eight loss d enies. R espiratory: Cough d enies. S hortness of breath at rest d enies. S hortness of breath with exertion d enies. W heezing d enies. C ardiovascular: Chest pain at rest d enies. C hest pain with exertion?denies. I rregular heartbeat d enies. S hortness of breath d enies. ? G astrointestinal: Abdominal pain d enies. C hange in bowel habits d enies. D iarrhea d enies. N ausea d enies. R ectal bleeding d enies. V omiting d enies . G enitourinary: Blood in urine d enies. D ifficulty urinating d enies. F requent urination d enies. U rinary incontinence D enies. M usculoskeletal: Painful joints d enies. W eakness d enies. ? S kin: Dry skin d enies. I tching d enies. D enies?Mole(s), changes in moles, new moles or any lesions of concern. D enies P hotosensitivity. R wilner d enies. N eurologic: Dizziness d enies. F ainting d enies. H eadache?denies. * Medical History: * Surgical History: * Hospitalization/Major Diagno stic Procedure: * Family History: F ather: alive 92 yrs. M other: 85 yrs. 1 brother(s) [...] the [place]: no. * Medications: T akingVitamin D (Cholecalciferol) 25 [...] patient * Allergies: B actrim DS: rashAmoxicillin: maxi[Allergies Verified] Objective: * Vitals: H t: 64, Wt: 252, BMI:43.25, BP:122/76, Wt-k.31. * P ast Orders: L ab:UA ClnCatch+Micro w/rflx Cult (Order Date - 12/08/2024) (Collection Date & Time - 12/08/2024 08:00 AM) Value Reference Range Color Urine Dark Yellow - Appearance Urine Clear - PH 5.5 5.0-9.0 - Glucose Urine UA Negative Negative - mg/dL Urine Blood Negative Negative - Specific [place] - Urine 1.025 1.005-1.025 - Urine Protein Trace Neg-Trace - mg/dL Urine Ketones Trace Negative - mg/dL Nitrite Urine Negative Negative - Leukocyte Esterase Urine Small (1+) A Negative - RBC Urine 0-2 0-2 - /HPF WBC Urine 0-5 0-5 - /HPF Squamous Epithelial Cell Urine 3-5 0-2 - /HPF Bacteria Urine None Seen None Seen - [...] Abs Auto 0.000 0.0-0.012 - X10*3/uL L ab:Urine Culture (Order Date - 12/08/2024) (Collection Date & Time - 12/08/2024) Value Reference Range Urine Culture urogenital contamination. - L ab:Comprehensive [place]. Panel Fast (Order Date - 12/08/2024) (Collection [...] * Examination: G eneral Examination: GENERAL APPEARANCE: w ell developed, well nourished, in no acute distress. HEAD: n ormocephalic, atraumatic. EYES: p upils equal, round, reactive to light and accommodation, sclera non-icteric. EARS: n ormal. ORAL CAVITY: m ucosa moist. THROAT: c lear. NECK/THYROID: n abhijit supple, full range of motion, no cervical lymphadenopathy, no bruits. SKIN: w arm and dry, no suspicious lesions. HEART: r egular rate and rhythm, S1, S2 normal, no murmurs.? LUNGS: c lear to auscultation bilaterally. BREASTS: h as no breasdt. ABDOMEN: s oft, nontender, nondistended, bowel sounds present, normal, no organomegaly , no masses palpable. RECTAL EXAM: d oing cologard. FEMALE GENITOURINARY: d one by motion picture equipment machinist. EXTREMITIES: n o clubbing, cyanosis, or edema. NEUROLOGIC: n onfocal, motor strength normal upper and lower extremities, sensory exam intact. Assessment: * Assessment: 1. B ack pain - M54.9 (Primary) 2 . E ssential hypertension - I10 ? 3 . P ure hypercholesterolemia - E78.00 4 . V itamin D deficiency - E55.9 5 . E ncounter for screening for malignant neoplasm of colon - Z12.11 & #160; 6 . H istory of bilateral mastectomy - Z90.13 7 . E ncounter for screening for malignant neoplasm of rectum - Z12.12 8 . D epression screening - Z13.31 Plan: * Treatment: 2. P ure hypercholesterolemia Continue Atorvastatin Calcium Tablet, 40 MG, TAKE 1 TABLET ONCE DAILY, Orally, Once a day. ? Notes: well controlled, will continue current regiment 3. V itamin D deficiency Continue Vitamin D (Cholecalciferol) Capsule, 25 MCG (1000 UT), 2 tablet, Orally, Once a day. ? Notes: stable, will continue current regiment 4. E ncounter for screening for malignant neoplasm of colon L AB: COLOGUARD Notes: order faxed to [facility] [employer] 5. H istory of bilateral mastectomy Notes: doing well 6. E ncounter for screening for malignant neoplasm of rectum L AB: COLOGUARD 7. D epression screening Notes: negative screen * Procedure Codes: * Preventive Medicine: Counseling: C are goal follow-up plan: C ounseling for abnormal BMI provided?Yes, A levy Normal BMI Follow-up G mariza encouragement to exercise. * Follow Up: 6 Months * * Sign off status: Completed true * Provider: Finn Lopez MD Date: 0 12/31/2024 Generated for Rayshawn hanson/Alex/Skylar on: 03:08 PM EDT History and Physical Notes * HPI (History of Present Illness) Category Sub-Category Detail Notes Category Not es Symptom(s) patient is a 69 yo female here for review of recent labs and follow up of chronic issues Depression Screening PHQ-9 Little inte rest or [...] way: Not at all Total Score: 0 Interpretation and Intervention Depression Gumaro barros Findings: Negative Follow-Up for Depression: : review of PH Q-9 found negative result, no follow-up needed SDOH Questions SDOH Questions In the past [...] had two or more falls in the st year?: No Communication Needs Communication Needs Does the patient have a hearing impairment: No Does the patient have a vision impairmen t?: Yes If yes, what is the vision impairment?: Glasses Does the patient have a cognition impair ment?: No Examination Category Sub-Category Detail Notes Category Not es General Examination GENERAL APPEARANCE: well dev eloped, well nourished, in no acute distress HEAD: normocephalic, atrau matic EYES: pupils equal, round, reactive to light and accommodation, sclera non-icteric EARS: normal THROAT: clear NECK/THYROID: neck supple, full ra nge of motion, no cervical lymphadenopathy, no bruits HEART: regular rate and rhy thm, S1, S2 normal, no murmurs LUNGS: clear to auscultatio n bilaterally ABDOMEN: soft, nontender, non distended, bowel sounds present, normal, no organomegaly , no masses palpable NEUROLOGIC: nonfocal, motor stre ngth normal upper and lower extremities, sensory exam intact SKIN: warm and dry, no douglas picious lesions EXTREMITIES: no clubbing, cyanosi s, or edema BREASTS: has no breasdt RECTAL EXAM: doing cologard FEMALE GENITOURINARY: done by motion picture equipment machinist ORAL CAVITY: mucosa moist
--- OUTSIDE RECORDS SUMMARY | 2025-03-09 07:15 | XMS_ITS ---
Author Organization Otoniel Lopez MD Address [address] [place] [phone] Care Team Providers Care Sports Statistician Name Role Phone Otoniel Lopez Primary Care Provider Allergies Allergen (clinical drug ingredient) Drug/Non Drug Allergy documented on EMR Reaction Allergy Type Onset Date Status sulfamethoxazole / trimethoprim Bactrim DS rash Drug Allergy Active amoxicillin Amoxicillin rash Drug Allergy Act mart REASON FOR VISIT pre-op Dr. Davila 03-25-2025 rt eye, Patient waiting until March for HDF Medications Medication SIG (Take, Route, Frequency, Duration) Notes Start Date End Date Status Naproxen 500 MG TAKE 1 TABLET BY DEANN TH NEEDED EVERY 12 HOURS for 30 Not-Taking Atenolol 50 MG TAKE 1 TABLET ONCE DAILY for 90 Active Atorvastatin Calcium 40 MG TAKE 1 TABLET ONCE DAILY for 90 Active Vitamin D (Cholecalciferol) 25 MCG (1000 UT) 2 tablet Orally Once a day 08/06/2016 Active Problems Problem Type SNOMED Code ICD Code Onset Dates Problem Status W/U Status Risk Notes Problem 38035173 Age-related cataract of both eyes, unspecified age-related cataract type (H25.9) Active confirmed Vital Signs Blood pressure systolic 116 mm Hg 03/09/20 25 Blood pressure diastolic 80 mm Hg 025 Height 64 in 03/09/2025 Weight 254 lbs 03/09/2025 BMI 43.59 kg/m2 03/09/2025 weight is up 2 pounds since 12-31-24 Encounters Encounter Location Date Provider Diagnosis Otoniel Lopez MD [address] [place] [phone] 03/09/2025 Otoniel Lopez Preop examination Z01.818 and Age-related cataract of both eyes, unspecified age-related cataract type H25.9 Assessments Encounter Date Diagnosis (ICD Code) Assessment Notes Treatment Notes Treatment Clinical Notes Section Notes 03/09/2025 Preop examination (ICD-10 - Z01.818) patient doing cleared for upcoming surgery 03/09/2025 Age-related cataract of both eyes, unspecified age-related cataract type (ICD-10 - H25.9) Plan Of Treatment Treatment Notes Assessment Notes Preop examination patient doing cleare d for upcoming surgery Next Appt Details Provider Name:Otoniel villalobos, 07/06/2025 07:45:00 AM, [address] [place] [address], [address], [phone], Provider Name:Otoniel villalobos, 07/12/2025 11:00:00 AM, [address] [place] [address], [phone], Provider Name:Otoniel villalobos, 12/30/2025 07:00:00 AM, [address] [place] [address], [address], [phone], Provider Name:Otoniel villalobos, 01/06/2026 11:00:00 AM, [address] [place] [address], [phone], Progress Notes * Gaby WEEKS ADOB:05/1955 (69 yo F)Acc No.[id number]:03/09/2025 Patient: Gaby WARREN Provider: Finn Lopez MD :1955 A ge:69 Y S ex:Female Date:03/09/2025 Address:[id number] Subjective: * Chief Complaints: * p re-op Dr. Davila 03-25-2025 rt eyePatient waiting until March for HDF * HPI: S ymptom(s): patient is a 69 yo female here for pre o[ clearance for upcoming right cataract surgery scheduled 03/[address] Davila/ has not been able to wear glasses for year. * ROS: G eneral/Constitutional: Denies C hills. D enies F atigue. D enies F ever. D enies H eadache. E NT: Denies S ore throat. R espiratory: Denies C ough. D enies S hortness of breath at rest. D enies S hortness of breath with exertion. C ardiovascular: Patient denies c hest pain with exertion. G astrointestinal: Denies D iarrhea. D enies N ausea. * Medical History: * Surgical History: * Hospitalization/Major Diagno stic Procedure: * Medications: T akingVitamin D (Cholecalciferol) 25 MCG (1000 UT) Capsule 2 tablet Orally Once a day Atorvastatin Calcium 40 MG Tablet TAKE 1 TABLET ONCE DAILY Atenolol 50 MG Tablet TAKE 1 TABLET ONCE DAILY Taking Vitamin D (Cholecalciferol) 25 MCG (1000 UT) Capsule 2 tablet Orally Once a day Taking Atorvastatin Calcium 40 MG Tablet TAKE 1 TABLET ONCE DAILY Taking Atenolol 50 MG Tablet TAKE 1 TABLET ONCE DAILY Not- Taking/PRNNaproxen 500 MG Tablet TAKE 1 TABLET BY MOUTH NEEDED EVERY 12 HOURS Medication List reviewed and reconciled with the patientNot-Taking/PRN Naproxen 500 MG Tablet TAKE 1 TABLET BY MOUTH NEEDED EVERY 12 HOURS Medication List reviewed and reconciled with the patient * Allergies: B actrim DS: rashAmoxicillin: rashyes[Allergies Verified] Objective: * Vitals: H t: 64, Wt: 254, BMI:43.59, BP:116/80, Wt-k.21. weight is up 2 pounds since 12-31-24. * Examination: G eneral Examination: GENERAL APPEARANCE: a lert, well hydrated, in no distress.? HEAD: n ormocephalic. THROAT: n o erythema, no exudate, pharynx normal. NECK/THYROID: n abhijit supple. SKIN: g ood turgor. HEART: r egular rate and rhythm, no murmurs, rubs, gallops.? LUNGS: n o wheezes, rales, rhonchi, good air movement, clear to auscultation bilaterally. ABDOMEN: s oft, nontender, nondistended, no organomegaly.? Assessment: * Assessment: 1. A ge-related cataract of both eyes, unspecified age-related cataract type - H25.9 (Primary)? 2. P reop examination - Z01.818 Plan: * Treatment: * Procedure Codes: * * Sign off status: Completed true * Provider: Finn Lopez MD Date: 0 03/09/2025 Generated for Rayshawn hanson/Alex/eTransmitting on: 03:10 PM EDT History and Physical Notes * HPI (History of Present Illness) Category Sub-Category Detail Notes Category Not es Symptom(s) patient is a 69 yo female here for pre o[ clearance for upcoming right cataract surgery scheduled 03/[address] Davila/ has not been able to wear glasses for year Examination Category Sub-Category Detail Notes Category Not es General Examination GENERAL APPEARANCE: alert, w ell hydrated, in no distress HEAD: normocephalic THROAT: no erythema, no exud ate, pharynx normal NECK/THYROID: neck supple HEART: regular rate and rhy thm, no murmurs, rubs, gallops LUNGS: no wheezes, rales, r honchi, good air movement, clear to auscultation bilaterally ABDOMEN: soft, nontender, non distended, no organomegaly SKIN: good turgor
--- OUTSIDE RECORDS SUMMARY | 2025-04-28 15:09 | XMS_ITS | Patient Health Record ---
Author Organization [facility] Sherri guicho Winger Address [address] [place] [address] Care Team Providers Care Shaker Tender Name Role Phone Otoniel Lopez MD Primary Care Provider Monica Anne Lynda Unavailable [phone] Allergies Allergen (clinical drug ingredient) Drug/Non Drug Allergy documented on EMR Reaction Allergy Type Onset Date Status amoxicillin Amoxicillin rash Drug Allergy Act mart sulfamethoxazole / trimethoprim Bactrim Unknown Drug Allergy Active erythromycin Erythromycin rash Drug Allergy A ctive Lamisil stomach upset Drug Allergy Act mart Reason For Referral No Information Medications Medication SIG (Take, Route, Fr equency, Duration) Notes Start Date End Date Status LamISIL 250 MG 1 tablet Orally Once a day for 7 days stop for 3 weeks repeat cycle; Duration: 90 days 04/01/2019 Not-[place]icho ing Atenolol 50 MG 1 tablet Orally Once a day; Duration: 30 day(s) Active Simvastatin 40 MG 1 tablet in the even ing Orally Once a day; Duration: 30 day(s) Active Social History Tobacco Use: Social History Observation Description Date Details (start date - stop date) Former Smoker NA - NA Tobacco Use/Smoking Question Answer Notes Are you a: former smoker Additional Findings: Tobacco Non-User Current no n-smoker Alcohol Screen Question Answer Notes Did you have a drink containing alcohol in the p ast year? No Points 0 Interpretation Negative Tobacco use other than smoking: Question Answer Notes Are you an other tobacco user? No Plan Of Treatment Pending Test Test Name Order Date *Liver Function Test (LFT) 03/30/2019 [id number] Plate 03/30/2019 39788 I&D ABSCESS- SIMPLE,SINGLE 019 Insurance Providers Payer Name Payer Address Payer Phone Subscriber Number Group Number Insured Name Patient Relationship to Insured Coverage Start Date Coverage End Date [facility] [address] [place] [id number] Gaby Villalobos Self - patient is the insured Medical (General) History Medical History History ICD Code CAD (Cholesterol) Cancer High blood pressure Mumps Chicken pox Surgical History Surgery Date(Month/Year) breast lumpectomy 1988 Breast mastectomy double 2008
--- OUTSIDE RECORDS SUMMARY | 2025-04-28 15:09 | XMS_ITS | Patient Health Record ---
Author Organization [facility] Address [address] [place] [phone] Care Team Providers Care Placement Manager Name Role Phone Otoniel Lopez MD Primary Care Provider Sav Chandler [phone] Allergies Allergen (clinical drug ingredient) Drug/Non Drug Allergy documented on EMR Reaction Allergy Type Onset Date Status Substance with sulfonamide structure and antibacterial mechanism of action (substance) Sulfa Antibiotics Unknown Drug Allergy Active amoxicillin Amoxicillin Unknown Drug Allergy Act mart Reason For Referral No Information Medications Medication SIG (Take, Route, Fr equency, Duration) Notes Start Date End Date Status Simvastatin 40 MG 1 tablet in the even ing Orally Once a day; Duration: 30 day(s) 02/04/2025 Active Atenolol 50 MG 1 tablet Orally Once a day; Duration: 30 day(s) 02/04/2025 Active Immunizations Vaccine Route Administration Date Status Comme nts Influenza Unknown 03/17/2024 Administered Social History Tobacco Use: Social History Observation Description Date Details (start date - stop date) Current Smoker NA - NA Tobacco Control (Standard) Question Answer Notes Tobacco use: Current smoker AUDIT-C (Standard) Question Answer Notes Did you have a drink containing alcohol in the p ast year? No Points 0 Interpretation Negative Problems Problem Type SNOMED Code ICD Code Onset Dates Problem Status W/U Status Risk Notes Problem Screening for malignant neoplasm of colon (513192319) Special screening for malignant neoplasms, colon (V76.51) Active confirmed Vital Signs Temperature 97.7 degrees Fahrenheit 02/04/2025 Blood pressure diastolic 01 mm Hg 02/04/2025 Height 63 in 02/04/2025 Blood pressure systolic 001 mm Hg 02/04/2025 Weight 252.4 lbs 02/04/2025 BMI 44.71 kg/m2 02/04/2025 Procedures Procedure Date Ordered Date Performed Result Body Sit e COLONOSCOPY 02/04/2025 N/A Encounters Encounter Location Date Provider Diagnosis [facility] [address] [place] [address] 02/04/2025 Sav Cody Positive colorectal cancer screening using Cologuard test R19.5 Assessments Encounter Date Diagnosis (ICD Code) Assessment Notes Treatment Notes Treatment Clinical Notes Section Notes 02/04/2025 Positive colorectal cancer screening using Cologuard test (ICD-10 - R19.5) Overall, Harvinder appears well. Given the finding of a recent positive Cologuard test and her last colonoscopy being well over 10 years ago, I did recommend a follow-up colonoscopy for further evaluation to rule out polyps or any other lesions. We did review the rationale for this in regard to colorectal cancer prevention and/or early detection. Full consent has been obtained for this, including risks of bleeding and perforation. The procedure will be done with monitored anesthesia care. Harvinder was comfortable with this plan. Thank you again for allowing me to participate in Harvinder's care. I shall continue to keep you advised of her progress. Plan Of Treatment Pending Test Test Name Order Date COLONOSCOPY 02/04/2025 Next Appt Details Provider Name:Sav Cody , 05/07/2025 09:30:00 AM, [address] [place] [address] , [place], [place], [phone], Insurance Providers Payer Name Payer Address Payer Phone Subscriber Number Group Number Insured Name Patient Relationship to Insured Coverage Start Date Coverage End Date MEDICARE OF [place] [address] [facility] [address] [phone] [id number] HARVINDER WEEKS Self - patient is the insured [employer] CLAIM[employer] [address] [place] [address] [id number] HARVINDER WEEKS Self - patient is the insured Medical (General) History Medical History History ICD Code HTN Denies NH,DM,CVA,Lung disease,renal dise ase Hyperlipidemia Breast cancer with surgery, XRT and chem o Negative screening colonosco py in 2010 other than some hyperplastic polyps. She had a negative Cologuard test in approximately 2020. She had a positive Cologuard test in 2024. Surgical History Surgery Date(Month/Year) Bilateral mastectomy 2007
--- OUTSIDE RECORDS SUMMARY | 2025-04-28 15:09 | XMS_ITS | Patient Health Record ---
Author Organization Otoniel Lopez MD Address [address] [place], [place] [phone] Care Team Providers Care Oil Burner Servicer And Installer Name Role Phone Otoniel Lopez Primary Care Provider Allergies Allergen (clinical drug ingredient) Drug/Non Drug Allergy documented on EMR Reaction Allergy Type Onset Date Status sulfamethoxazole / trimethoprim Bactrim DS rash Drug Allergy Active amoxicillin Amoxicillin rash Drug Allergy Act mart Results Component Value Reference Range Notes Liver Panel Reviewed date:06/12/2024 02:00:05 PM Interpretation: Performing Lab:[facility], [address] [place] [phone] Notes/Report: Bilirubin Total 0.4 0.0-1.0 mg/dL Bilirubin Direct 0.1 0.0-0.5 mg/dL Aspartate Amino Transferase 22 5-31 U/L Alanine Aminotransferase 23 0-31 U/L Total Protein 6.6 6.5-8.0 g/dL Albumin Level 3.7 3.5-5.0 g/dL Alkaline Phosphatase 78 39-117 U/L Lipid Panel with Reflex Reviewed date:06/12/2024 01:50:21 PM Interpretation: Performing Lab:[facility], [address] [place] [phone] Notes/Report: Triglycerides 163 <150 mg/dL Desirable Triglyceride: [...] low results in patients with liver disease. Complete Blood Count Auto Di ff Reviewed date:12/08/2024 11:51:17 AM Interpretation: Performing Lab:[facility], [address] [place] [phone] Notes/Report: White Blood Count 11.5 4.8-10.8 X10*3/uL [...] NRBC Abs Auto 0.000 0.0-0.012 X10*3/uL Comprehensive Amory. Panel Fa Reviewed date:12/08/2024 11:48:43 AM Interpretation: Performing Lab:[address] [phone] Notes/Report: Sodium 141 135-145 mmol/L Potassium 4.5 [...] Panel Reviewed date:12/08/2024 11:45:02 AM Interpretation: Performing Lab:[address] [phone] Notes/Report: Bilirubin Direct 0.2 0.0-0.5 mg/dL Lipid Panel Reviewed date:12/08/2024 11:46:16 AM Interpretation: Performing Lab:[address] [place] [phone] Notes/Report: Triglycerides 153 <150 mg/dL Desirable Triglyceride: [...] t Reviewed date:12/08/2024 12:16:30 PM Interpretation: Performing Lab:[facility], [address] [place] [phone] Notes/Report: Urine, Clean Catch Color Urine Dark Yellow Appearance Urine Clear PH 5.5 5.0-9.0 Glucose Urine UA Negative Negative mg/dL Urine Blood Negative Negative Specific [place] - Urine 1.025 1.005-1.025 Urine Protein Trace Neg-Trace mg/dL Urine Ketones Trace Negative mg/dL Nitrite Urine Negative Negative Leukocyte Esterase Urine Small (1+) Negative RBC Urine 0-2 0-2 /HPF WBC Urine 0-5 0-5 /HPF Squamous Epithelial Cell Urine 3-5 0-2 /HPF Transitional Epi Cells Urine Present Bacteria Urine None Seen None Seen Hyaline Casts Urine 0-2 0-2 /LPF Marybel Jim Reviewed date:06/12/2024 01:27:45 PM Interpretation: Performing Lab:[address] [phone] Notes/Report: Marybel Jim See Note Specimen held untested for 24 hours; Call to request Chemistry testing. Marybel Jim Reviewed date:12/08/2024 11:44:52 AM Interpretation: Performing Lab:[facility], [address] [place] [phone] Notes/Report: Hold Gold See Note Specimen held untested for 24 hours; Call to request Chemistry testing. Urine Culture Reviewed date:12/09/2024 04:14:38 PM Interpretation: Performing Lab:[facility], [address] [place] [phone] Notes/Report: Urine Culture Report Result Urine Culture 10,000 to 50,000 cfu/ml Urine Culture Mixed bacterial justice a characteristic of Urine Culture urogenital contamination. Reason For Referral Reason positive Cologuard t est needs colonocopy Diagnosis 1 Positive colorectal cancer screening using Cologuard test (R19.5) Referral Organization Otoniel Lopez MD Referring Provider First Name Otoniel Referring Provider Last Name Jessica Referring Provider Speciality Internal M edicine Referred Provider Mg Cody Referred Provider Specialty Gastroentero logy General Notes Naty Denise 0 01/25/2025 01:26:53 PM >info faxedCamelia Annette 02/01/2025 08:43:00 AM >called patient with info and mailed Referral Priority Routine Referral Appointment Date 02/12/2025 Medications Medication SIG (Take, Route, Frequency, Duration) [...] 04/29/2012 Administered Flu Vaccine Unknown 04/19/2013 Administered [facility] Flu Vaccine Unknown 04/21/2014 Administered [facility] [address] Fluarix Quadrivalent IM Intramuscular 04/01/2015 Jenna dhaliwal pt recieved the vaccine at [facility] in [place]. PPSV23 (Pnemovax) IM Intramuscular 07/12/2015 Administered Fluarix Quadrivalent IM Intramuscular 04/26/2016 Jenna dhaliwal pt recieved the vaccine at [facility] in [place]. Prevnar 13 IM Intramuscular 08/06/2016 Administered Fluarix Quadrivalent Unknown 04/24/2017 Administered S Fluarix Quadrivalent IM Intramuscular 04/09/2018 Jenna dhaliwal [facility] Fluarix Quadrivalent IM Intramuscular 04/14/2019 Jenna dhaliwal pt was given the vaccine at [facility] in [place]. 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 Problem 69638822 Vitamin D defici ency (E55.9) Active confirmed Problem 18003791 Atherosclerosis of aorta (I70.0) Active confirmed Problem 09327329 Kidney stone (N20.0) Active confirmed Problem 987098961 Lumbar disc dise ase (M51.9) Active confirmed Problem 56932486 Essential hypert ension (I10) Active confirmed Problem 013567947 Low HDL (under 4 0) (E78.6) Active confirmed Problem 879029713 Morbid obesity d ue to excess calories (E66.01) Active confirmed Problem 298483882 History of hemat uria (Z87.448) Active confirmed Problem 387838153 FRASER (nonalcohol ic steatohepatitis) (K75.81) Active confirmed Problem 702092212 History of bilat eral mastectomy (Z90.13) Active confirmed Problem 780018190 Drug allergy (Z88.9) Active confirmed Problem 096168527 Pure hypercholesterolemia (E78.00) Active confirmed Problem 17386489 LIZZETTE (obstructive sleep apnea) (G47.33) Active confirmed Problem 98081404 Age-related cody ract of both eyes, unspecified age-related cataract type (H25.9) Active confirmed Problem 22299179 Lumbar degenerat mart disc disease (M51.36) Active confirmed Vital Signs Blood pressure diastolic 80 mm Hg 03/09/2025 katie ght is up 2 pounds since 12-31-24 Height 64 in 03/09/2025 weight is up 2 pounds since 12-31-24 Blood pressure systolic 116 mm Hg 03/09/2025 weig ht is up 2 pounds since 12-31-24 Weight 254 lbs 03/09/2025 weight is up 2 pounds since 12-31-24 BMI 43.59 kg/m2 03/09/2025 weight is up 2 pounds since 12-31-24 Encounters Encounter Location Date Provider Diagnosis Otoniel Lopez MD [address] [place] [id number] 06/12/2024 Otoniel Lopez Pure hypercholestero lemia E78.00 Otoniel Lopez MD [address] [place] [address] Drive [address] [place] [id number] 12/08/2024 Otoniel Lopez Essential hypertensi on I10 ; Pure hypercholesterolemia E78.00 and FRASER (nonalcoholic steatohepatitis) K75.81 Otoniel Lopez MD [address] [place] [id number] 06/15/2024 Otoniel Lopez Essential hypertensi on I10 and Pure hypercholesterolemia E78.00 Otoniel Lopez MD [address] [place] [id number] 11/10/2024 Otoniel Lopez Cerumen impaction H6 1.20 tOoniel Lopez MD [address] [place] [id number] 12/31/2024 Otoniel Lopez Back pain M54.9 ; Essential hypertension I10 ; Pure hypercholesterolemia E78.00 ; Vitamin D deficiency E55.9 ; Encounter for screening for malignant neoplasm of colon Z12.11 ; History of bilateral mastectomy Z90.13 ; Encounter for screening for malignant neoplasm of rectum Z12.12 and Depression screening Z13.31 Otoniel Lopez MD [address] [place] [id number] 03/09/2025 Otoniel Lopez Preop examination Z0 1.818 and Age-related cataract of both eyes, unspecified age-related cataract type H25.9 Otoniel Lopez MD [address] [place] [id number] 08/10/2024 Otoniel Lopez Assessments Encounter Date Diagnosis (ICD Code) Assessment Notes Treatment Notes Treatment Clinical Notes Section Notes 06/12/2024 Pure hypercholesterolemia (ICD-10 - E78.00) 12/08/2024 Essential hypertensi on (ICD-10 - I10) 06/15/2024 Essential hypertensi on (ICD-10 - I10) stable, continue with present meds 06/15/2024 Pure hypercholesterolemia (ICD-10 - E78.00) doing well on meds. will continue curent regiment 11/10/2024 Cerumen impaction (ICD-10 - H61.20) 12/31/2024 Back pain (ICD-10 - M54.9) 12/31/2024 Essential hypertensi on (ICD-10 - I10) doing well,will continue current regiment 03/09/2025 Preop examination (ICD-10 - Z01.818) patient doing cleared for upcoming surgery 03/09/2025 Age-related cataract of both eyes, unspecified age-related cataract type (ICD-10 - H25.9) 12/08/2024 Pure hypercholesterolemia (ICD-10 - E78.00) 12/31/2024 Pure hypercholesterolemia (ICD-10 - E78.00) well controlled, will continue current regiment 12/08/2024 FRASER (nonalcoholic steatohepatitis) (ICD-10 - K75.81) 12/31/2024 Vitamin D deficiency (ICD-10 - E55.9) stable, will continue current regiment 12/31/2024 Encounter for screen ing for malignant neoplasm of colon (ICD-10 - Z12.11) order faxed to [facility] 12/31/2024 History of bilateral mastectomy (ICD-10 - Z90.13) doing well 12/31/2024 Encounter for screen ing for malignant neoplasm of rectum (ICD-10 - Z12.12) 12/31/2024 Depression screening (ICD-10 - Z13.31) negative screen Plan Of Treatment Pending Test Test Name Order Date Electrocardiogram (EKG) 05/17/2015 CT ABD & PELVIS NO CONTRAST 05/21/2022 US ABD 11/14/2020 COLOGUARD 12/31/2024 Urinalysis and Microscopic 12/05/2020 Urinalysis 11/08/2020 CT lumbar spine w con 12/16/2023 CT lumbar spine wo con 12/16/2023 XR DEXA axial skeleton 11/14/2020 US abdomen olvera w elastography 12/16/2023 US abdomen complete 10/31/2023 Next Appt Details Provider Name:Otoniel Burr ier, 07/06/2025 07:45:00 AM, [address] [place] [address], [address], [phone], Provider Name:Otoniel Burr ier, 07/12/2025 11:00:00 AM, [address] [place] [address], [address], [phone], Provider Name:Otoniel Burr ier, 12/30/2025 07:00:00 AM, [address] [place] [address], [address], [phone], Provider Name:Otoniel Burr ier, 01/06/2026 11:00:00 AM, [address] [place] [address], [address], [phone], Insurance Providers Payer Name Payer Address Payer Phone Subscriber Number Group Number Insured Name Patient Relationship to Insured Coverage Start Date Coverage End Date MEDICARE [facility] [address] [place] [address] [id number] Gaby Villalobos Self - patient is the insured [employer] [place] [address] [place] [address] [id number] Gaby Villalobos Self - patient is the insured Medical (General) History Medical History History ICD Code hematuria with neg work up in 2007 hyperplastic polyp 2011 colonoscopy due in 10 Surgical History Surgery Date(Month/Year) Bilateral Mastectomy 04/16/2008
--- NOTE | 2025-05-05 12:02 | HO.ANESPROP2 ---
Documented by User: Diane Kahn NP 05/05/25 12:02 HPI - Anesthesia Eval Consult details Narrative: 70 yr old female for colonoscopy PMFSH Active Problems Active Problems: All Active Problems Impacted cerumen of right ear (Acute) Epidermal cyst of neck (Acute) UTI (urinary tract infection) (Acute) Cervical radiculopathy (Acute) Past Medical History Medical History Breast cancer Hyperlipidemia HTN (hypertension) Family History Family History Paternal Grandfather Cancer Surgical History Surgical History H/O colonoscopy History of mastectomy History of lumpectomy Social History Social History Are you a primary plant care worker to a significant other at home: No Do you presently have visiting nurse or other home services: No Alcohol intake: never Patient Tobacco Use Status: Current someday Tobacco user Tobacco use type: Cigarette Smoked in Last 30 Days: Yes Patient Interested in Nicotine Replacement: No Have you been hit, kicked, punched, or otherwise hurt by someone within the past year? If so, by whom?: No Advance Directives: No Advance Directives Information Provided: Yes Meds Allergies Allergy/AdvReac Type Severity Reaction Status Date / Time amoxicillin Allergy Unknown Rash Verified 05/07/25 08:34 sulfamethoxazole (From Allergy Rash Verified 05/07/25 08:34 Bactrim) trimethoprim (From Bactrim) Allergy Rash Verified 05/07/25 08:34 Home Medications ?Medication ?Instructions ?Recorded ?Confirmed ?Last Taken ?Type atenolol 50 mg tablet 50 mg PO DAILY 06/14/20 05/05/25 Unknown History atorvastatin 40 mg tablet 40 mg PO DAILY 01/03/21 05/05/25 Unknown History cholecalciferol (vitamin D3) 25 25 mcg PO DAILY 04/22/23 05/07/25 Unknown History mcg (1,000 unit) capsule cyclosporine 0.05 % eye drops in a drp ophthalmic (eye) 10/07/24 Unknown History dropperette (Restasis) Documented by User: Missy Kendall MD 05/07/25 09:58 PMFSH Past Medical History Medical History Breast cancer Hyperlipidemia HTN (hypertension) Family History Family History Paternal Grandfather Cancer Family history of problems with anesthesia: No Surgical History Surgical History H/O colonoscopy History of mastectomy History of lumpectomy History of Problems with Anesthesia: No Social History Social History Are you a primary plant care worker to a significant other at home: No Do you presently have visiting nurse or other home services: No Alcohol intake: never Patient Tobacco Use Status: Current someday Tobacco user Tobacco use type: Cigarette Smoked in Last 30 Days: Yes Patient Interested in Nicotine Replacement: No Have you been hit, kicked, punched, or otherwise hurt by someone within the past year? If so, by whom?: No Advance Directives: No Advance Directives Information Provided: Yes Meds Allergies Allergy/AdvReac Type Severity Reaction Status Date / Time amoxicillin Allergy Unknown Rash Verified 05/07/25 08:34 sulfamethoxazole (From Allergy Rash Verified 05/07/25 08:34 Bactrim) trimethoprim (From Bactrim) Allergy Rash Verified 05/07/25 08:34 Home Medications ?Medication ?Instructions ?Recorded ?Confirmed ?Last Taken ?Type atenolol 50 mg tablet 50 mg PO DAILY 06/14/20 05/05/25 Unknown History atorvastatin 40 mg tablet 40 mg PO DAILY 01/03/21 05/05/25 Unknown History cholecalciferol (vitamin D3) 25 25 mcg PO DAILY 04/22/23 05/07/25 Unknown History mcg (1,000 unit) capsule cyclosporine 0.05 % eye drops in a drp ophthalmic (eye) 10/07/24 Unknown History dropperette (Restasis) Exam Airway Mallampati Class: III TM Dist: <=3cm Neck ROM: Limited Heart: rrr Lungs: cta Assessment and Plan Assessment Anesthesia Assessment: Anesthesia Plan Discussed and Chart Reviewed Final Anesthetic Review Family History of Problems with Anesthesia: No History of Problems with Anesthesia: No NPO: Yes ASA Class: III (severe lis) Final Preanesthetic Review: No Changes in Pt Med Stat, Meds/Allgs Chart Reviewed, Consent Obtained/Reviewed and Anes Risks/Benef Reviewed Patient Risk: Intermediate Procedure Risk: Low Anesthetic Plan Anesthetic Plan: MAC: and Agree w/ Assess. and Plan Disposition: Standard PACU
[2025-05-05 14:15] VITALS: BMI 44.7
[2025-05-07 08:32] VITALS: BMI 44.0
[2025-05-07] MEDS: Lactated Ringers 1,000 ML 100 ML IVCONT (08:42)
[2025-05-07 08:56] VITALS: BP 125/73; PULSE 78; RESP 18; TEMP 36.6; O2SAT 95
[2025-05-07 11:07] VITALS: BP 125/80; PULSE 72; RESP 21; TEMP 36.6; O2SAT 94
--- NOTE | 2025-05-07 11:08 | P.BOP_ITS ---
Brief Operative Note Date of Service: 05/07/25 Pre-op diagnosis: + Cologuard Post-op diagnosis: other (Polyp) Procedure: Colonoscopy to the cecum with bx/removal of polyp Surgeon: Sav Cody MD Anesthesia: MAC Was an [employer] used for this Procedure?: No Estimated blood loss (mL): 2.0 Pathology: other (A. Ascending colon polyp) Condition: stable Disposition: PACU
[2025-05-07 11:23] VITALS: BP 124/76; PULSE 67; RESP 20; O2SAT 95
[2025-05-07 11:38] VITALS: BP 117/52; PULSE 63; RESP 22; TEMP 36.6; O2SAT 96
--- NOTE | 2025-05-07 12:18 | OP_ITS ---
DATE OF SERVICE: 05/07/2025 SURGEON: Sav Cody MD INDICATIONS: The patient presents for evaluation of positive Cologuard test. Full consent has been obtained from her for this, including risks of bleeding and perforation. PREOPERATIVE DIAGNOSIS: Positive Cologuard test POSTOPERATIVE DIAGNOSIS: Positive Cologuard test, small colon polyp, diverticulosis, and internal hemorrhoids. PROCEDURE PERFORMED: Colonoscopy to cecum with biopsy and removal of polyp. ESTIMATED BLOOD LOSS: COMPLICATIONS: ANESTHESIA: Medication used, monitored anesthesia care. ASSISTANTS: SPECIMENS: DESCRIPTION OF PROCEDURE: The patient was placed in the left lateral decubitus position. The digital rectal exam revealed some external hemorrhoids. The Olympus video pediatric colonoscope was entered into the rectum and advanced easily to the cecum, I did identify cecal pouch with appendiceal orifice and a normal-appearing ileocecal valve. There was transillumination of light deep in the right lower quadrant. The entire cecum and ileocecal valve appeared normal. The scope was then slowly withdrawn assessing all mucosal surfaces carefully. Preparation was excellent. In the ascending colon a 4 mm polyp was biopsied and completely removed with cold biopsy forceps. I did not visualize any other polyps, colitis, or angiodysplasia. There was a moderate amount of diverticulosis in the descending and sigmoid colon. In the rectum the scope was retroflexed visualizing internal hemorrhoids, but no other pathology. The rectal mucosa appeared normal. The scope was straightened and withdrawn from the patient. She tolerated the procedure well and was returned to the recovery area in stable condition. IMPRESSION: 1. Small colon polyp. 2. Diverticulosis. 3. Internal hemorrhoids. PLAN: The results of the pathology will be checked. If this is a tubular adenoma, I would recommend a followup colonoscopy in 5 years. If this is only hyperplastic, I would recommend a followup coloscopy in 10 years. She will otherwise see me on a p.r.n. basis. MD VONDA Schmitz/JAVON / [phone] JACKIE
== END 2025-05-07 12:29 | disposition home or self-care (01) ==
PROVIDERS: PCP Internal Medicine; Visit Provider Internal Medicine
PROC: 0DJD8ZZ Inspection of Lower Intestinal Tract, Via Natural or Artificial Opening Endoscopic (ICD-10-PCS; CPT 45378; principal; 2025-05-07 09:30)
DX: R19.5 Other fecal abnormalities (principal); Z86.0102 Personal history of hyperplastic colon polyps; K64.8 Other hemorrhoids; K57.30 Diverticulosis of large intestine without perforation or abscess without bleeding; K63.5 Polyp of colon
CPT/HCPCS: 45380; 88305; J1100; J2371; J2704